=== PATIENT | female | born 1930 | race American Indian/Alaskan Native ===

== ENCOUNTER 2018-08-02 02:46 | Inpatient (IN) ==
[2018-08-02 03:14] LABS: Basophils # (auto) 0.04 K/uL (0-0.2); Basophils % (auto) 0.6 %; Eosinophils # (auto) 0.16 K/uL (0-0.5); Eosinophils % (auto) 2.4 %; Hematocrit (blood only) 37.9 % (37-47); Hemoglobin 12.3 g/dL (12.0-16.0); Immature Granulocytes # (auto) 0.01 K/uL (0.00-0.02); Immature Granulocytes % (auto) 0.2 %; Lymphocytes # (auto) 1.15 K/uL (1.2-3.4); Lymphocytes % (auto) 17.3 %; Mean Corpuscular Hgb Conc 32.5 g/dL (32-36); Mean Corpuscular Volume 89.4 fL (80-100); Mean Platelet Volume 10.9 fL (7.4-10.4); Monocytes # (auto) 0.48 K/uL (0.11-0.59); Monocytes % (auto) 7.2 %; Neutrophils # (auto) 4.81 K/uL (1.4-6.5); Neutrophils % (auto) 72.3 %; Platelet Count 241 K/uL (130-400); RDW Coefficient of Variation 14.9 % (11.5-14.5); RDW Standard Deviation 48.2 fL (36.4-46.3); Red Blood Count 4.24 M/uL (4.2-5.4); White Blood Count 6.65 K/uL (4.8-10.8)
[2018-08-02] MEDS ORDERED: LABETALOL HCL IV 5 MG/ML 20ML IV STA ×2 (03:17→14:06)
[2018-08-02 03:35] LABS: Alanine Aminotransferase 29 U/L (12-78); Albumin Level 3.9 gm/dl (3.4-5.0); Aspartate Aminotransferase 23 U/L (15-37); BUN Creatinine Ratio 18.5 (10-20); Blood Urea Nitrogen 21 mg/dl (7-18); Carbon Dioxide 29 mmol/L (21-32); Chloride 108 mmol/L (98-107); Est GFR (African American) 50.8; Est GFR (Non-African American) 43.8; Glucose 92 mg/dl (70-99); Magnesium 1.9 mg/dl (1.8-2.4); Potassium 3.7 mmol/L (3.5-5.1); Sodium 141 mmol/L (136-145)
[2018-08-02 03:38] LABS: Albumin Globulin Ratio 1.1 (0.9-2); Alkaline Phosphatase 100 U/L (45-117); Bilirubin,Total 0.7 mg/dl (0.2-1); Globulin 3.6 gm/dl (2.5-4.0); Total Protein 7.5 gm/dl (6.4-8.2)
[2018-08-02 03:48] LABS: Influenza A virus by PCR Neg for Influ A (Neg); Influenza B virus by PCR Neg for Influ B (Neg)
[2018-08-02 03:54] LABS: Appearance Urine Clear (Clear); Bacteria Urine Automated Negative (Negative); Bilirubin Urine Negative (Negative); Cast Urine Automated 0 /lpf (0-5); Color Urine Yellow; Epithelial Cell Urine Auto >30 /lpf (0-5); Glucose Urine UA Negative (Negative); Ketones Urine Negative (Negative); Leukocyte Esterase Urine Negative (Negative); Nitrite Urine Negative (Negative); Protein Urine 1+ (Negative); Specific Gravity Urine 1.014 (1.000-1.030); Urobilinogen Urine Negative (Negative)
[2018-08-02 04:16] LABS: Troponin I < 0.015 ng/ml (0-0.045)
[2018-08-02] MEDS ORDERED: LISINOPRIL 40 MG TAB PO STA (05:03)
[2018-08-02] MEDS ORDERED: AMLODIPINE BESYLATE 5 MG TAB PO ONE (05:03)
[2018-08-02] MEDS ORDERED: ATENOLOL 50 MG TABLET PO ONE (05:03)
[2018-08-02] MEDS ORDERED: MAGNESIUM SULFATE / D5W 1 GM/100 ML BAG IV ONE (06:08)
[2018-08-02] MEDS: POTASSIUM CHLORIDE 20 MEQ TABCR PO STA ×2 (06:26→06:36)
[2018-08-02 06:48] LABS: Partial Thromboplastin Time 25.3 Seconds (21.0-31.0)
--- NOTE | 2018-08-02 06:49 | History & Physical Report ---
Date of Service August 02, 2018 Assessment & Plan (1) SOB (shortness of breath): Over the last 6 months Possibly from A. fib secondary to hypertensive urgency secondary to medication noncompliance Rule out PE/DVT with leg swelling complaints Forgetfulness, possible beginning dementia PCU Facilitate home BP meds, increase Atenolol to twice daily dosing CT chest, LE Dopplers for PE/DVT workup TTE, Cardio consult RE new onset A. fib IV Heparin for thromboembolic prevention PT OT eval DVT prophylaxis. Heparin Full code Patient's [id number] requesting updates from providers. Ms. Aleah Moya, contact #[phone]. Present on Admission?: Yes History of Present Illness Chief Complaint: Shortness of breath Primary Care Provider: Cheryl Grider History obtained from patient, family, and records. Patient is a fair historian. Medical history significant for hypertension, mitral regurgitation as per records, osteoarthritis. Patient seen at PCPs office 3 months ago for multiple concerns. Medication noncompliance, memory issues, exertional SOB symptoms. Patient denies depression. SBP during encounter was 170s. Outpatient TTE showed EF of 55%. This morning, patient had worsening shortness of breath symptoms. No chest pain. Bilateral leg swelling. No cough symptoms. SBP at the ER 190-220s. Patient noted to be in A. fib. Patient given IV labetalol followed by oral Norvasc, atenolol, and lisinopril medications. 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 Allergies Allergy/AdvReac Type Severity Reaction Status Date / Time No Known Allergies Allergy Unverified 08/02/18 04:43 Home Medications Home Medications Medication Instructions Recorded Confirmed Type amlodipine 2.5 mg PO DAILY 08/02/18 08/02/18 History atenolol 50 mg PO DAILY 08/02/18 08/02/18 History lisinopril 40 mg PO DAILY 08/02/18 08/02/18 History meloxicam 7.5 mg PO DAILY 08/02/18 08/02/18 History Past Med/Surg History Medical History HTN (hypertension) Social History Current Living Situation: Family Other Information That Helps Us Care for You: No Feels Safe at Home: Yes Safety Concerns: Feels Safe At This Time Smoking Status: Never smoker Hx Alcohol Use: Yes Alcohol type: wine Alcohol Intake Frequency: a few times a week Hx Substance Use: No Beliefs That Will Affect Care: None Preferred Language: Mohawk Communication Ability: Effective Review of Systems As per HPI, all 10 systems reviewed, all other ROS negative Physical Exam 2 Vital Signs (Past 24 Hours): Last Vital Signs Temp 36.8 C 08/02/18 02:50 Pulse 61 08/02/18 06:31 Resp 28 H 08/02/18 06:31 BP 160/92 H 08/02/18 06:31 Pulse Ox 93 08/02/18 06:31 Physical Exam: GENERAL: Comfortable slightly anxious, oriented to year, no respiratory distress SKIN: Normal color, warm HEENT: [place] palpebral conjunctivae, no ptosis, moist buccal mucosa NECK : Supple, short neck, no tenderness CHEST : CTA, no tenderness HEART : Irregular, systolic murmur ABDOMEN: Some distention, nontender EXTREMITIES : Bilateral LE swelling, no LE tenderness, no other conspicuous deformities noted NEUROLOGIC : Oriented to year, no facial asymmetry, mild hearing impairment, gait and stance not assessed Results & Data Laboratory Results Laboratory Results WBC 6.65 K/uL (4.8-10.8) 08/02/18 02:54 RBC 4.24 M/uL (4.2-5.4) 08/02/18 02:54 Hgb 12.3 g/dL (12.0-16.0) 08/02/18 02:54 Hct 37.9 % (37-47) 08/02/18 02:54 MCV 89.4 fL (80-100) 08/02/18 02:54 MCH 29.0 pg (25-34) 08/02/18 02:54 MCHC 32.5 g/dL (32-36) 08/02/18 02:54 RDW Std Deviation 48.2 fL (36.4-46.3) H 08/02/18 02:54 RDW Coeff of Matthew 14.9 % (11.5-14.5) H 08/02/18 02:54 Plt Count 241 K/uL (130-400) 08/02/18 02:54 MPV 10.9 fL (7.4-10.4) H 08/02/18 02:54 Immature Gran % (Auto) 0.2 % 08/02/18 02:54 Neut % (Auto) 72.3 % 08/02/18 02:54 Lymph % (Auto) 17.3 % 08/02/18 02:54 [place] % (Auto) 7.2 % 08/02/18 02:54 Eos % (Auto) 2.4 % 08/02/18 02:54 Baso % (Auto) 0.6 % 08/02/18 02:54 Immature Gran # (Auto) 0.01 K/uL (0.00-0.02) 08/02/18 02:54 Neut # (Auto) 4.81 K/uL (1.4-6.5) 08/02/18 02:54 Lymph # (Auto) 1.15 K/uL (1.2-3.4) L 08/02/18 02:54 [place] # (Auto) 0.48 K/uL (0.11-0.59) 08/02/18 02:54 Eos # (Auto) 0.16 K/uL (0-0.5) 08/02/18 02:54 Baso # (Auto) 0.04 K/uL (0-0.2) 08/02/18 02:54 APTT 25.3 Seconds (21.0-31.0) 08/02/18 02:54 PTT Ratio 1.0 08/02/18 02:54 Sodium 141 mmol/L (136-145) 08/02/18 02:54 Potassium 3.7 mmol/L (3.5-5.1) 08/02/18 02:54 Chloride 108 mmol/L (98-107) H 08/02/18 02:54 Carbon Dioxide 29 mmol/L (21-32) 08/02/18 02:54 Anion Gap 4.0 (3-11) 08/02/18 02:54 BUN 21 mg/dl (7-18) H 08/02/18 02:54 Creatinine 1.12 mg/dl (0.6-1.2) 08/02/18 02:54 Est Cr Clr Drug Dosing 30.0 ml/min 08/02/18 02:54 Est GFR ( Amer) 50.8 08/02/18 02:54 Est GFR (Non-Af Amer) 43.8 08/02/18 02:54 BUN/Creatinine Ratio 18.5 (10-20) 08/02/18 02:54 Glucose 92 mg/dl (70-99) 08/02/18 02:54 Calcium 9.0 mg/dl (8.5-10.1) 08/02/18 02:54 Magnesium 1.9 mg/dl (1.8-2.4) 08/02/18 02:54 Total Bilirubin 0.7 mg/dl (0.2-1) 08/02/18 02:54 AST 23 U/L (15-37) 08/02/18 02:54 ALT 29 U/L (12-78) 08/02/18 02:54 Alkaline Phosphatase 100 U/L (45-117) 08/02/18 02:54 Troponin I < 0.015 ng/ml (0-0.045) 08/02/18 02:54 Total Protein 7.5 gm/dl (6.4-8.2) 08/02/18 02:54 Albumin 3.9 gm/dl (3.4-5.0) 08/02/18 02:54 Globulin 3.6 gm/dl (2.5-4.0) 08/02/18 02:54 Albumin/Globulin Ratio 1.1 (0.9-2) 08/02/18 02:54 TSH 1.790 uIu/ml (0.300-4.500) 08/02/18 02:54 Urine Color Yellow 08/02/18 03:30 Urine Appearance Clear (Clear) 08/02/18 03:30 Urine pH 7.0 (4.5-7.5) 08/02/18 03:30 Ur Specific [place] 1.014 (1.000-1.030) 08/02/18 03:30 Urine Protein 1+ (Negative) H 08/02/18 03:30 Urine Glucose (UA) Negative (Negative) 08/02/18 03:30 Urine Ketones Negative (Negative) 08/02/18 03:30 Urine Blood Negative (Negative) 08/02/18 03:30 Urine Nitrite Negative (Negative) 08/02/18 03:30 Urine Bilirubin Negative (Negative) 08/02/18 03:30 Urine Urobilinogen Negative (Negative) 08/02/18 03:30 Ur Leukocyte Esterase Negative (Negative) 08/02/18 03:30 Urine WBC (Auto) 1-5 /hpf (0-5) 08/02/18 03:30 Urine RBC (Auto) 0-4 /hpf (0-4) 08/02/18 03:30 U Hyaline Cast (Auto) 0 /lpf (0-5) 08/02/18 03:30 U Epithel Cells (Auto) >30 /lpf (0-5) H 08/02/18 03:30 Urine Bacteria (Auto) Negative (Negative) 08/02/18 03:30 Influenza Type A (PCR) Neg for Influ A (Neg) 08/02/18 03:01 Influenza Type B (PCR) Neg for Influ B (Neg) 08/02/18 03:01 Diagnostic Findings Chest x-ray per my interpretation cardiomegaly EKG as per my interpretation : Rate 70, A. fib, no ischemia, PRWP
[2018-08-02] MEDS ORDERED: Heparin IV Standard *NO* Bolus SCH (06:53)
--- NOTE | 2018-08-02 07:10 | XRay Report ---
SINGLE VIEW CHEST CLINICAL HISTORY: Dyspnea. FINDINGS: An AP, portable, upright chest radiograph is obtained. No prior studies are available for c omparison at the time of dictation. The examination is degraded by portable technique and patient rot ation. The heart is enlarged and there is atherosclerotic calcification of the thoracic aorta. The p ulmonary vasculature is noncongested. Nonspecific interstitial thickening is likely chronic. There is bibasilar atelectasis. No airspace consolidation or large pleural effusion is identified. No pneumot horax is seen. The skeletal structures are osteopenic. The bony thorax is grossly intact. Degenerativ e change and scoliosis are noted in the thoracic spine. IMPRESSION: Cardiomegaly with no acute cardiopulmonary abnormality. Electronically signed by: Oscar Lee M.D. 08/02/2018 7:09 AM
--- NOTE | 2018-08-02 07:57 | Emergency Department Note ---
Entered by Chago Candelario acting as a scribe for Zayra Nix MD History of Present Illness General Chief complaint: Shortness of Breath/Dyspnea Stated complaint: SHORTNESS OF BREATH Time Seen by Provider: 08/02/18 02:51 Source: patient and family Mode of arrival: EMS Limitations: no limitations History of Present Illness Onset (ago): unknown (Recent) Location: chest Pain Consistency: + intermittent Relieved By: + none Associated symptoms: + weakness and + other (Lightheadedness) The patient is an 87 year old female who presents to the ED via EMS with family due to complaints of intermittent SOB that began recently. Daughter states the patient has also been complaining of lightheadedness and increased weakness. Daughter states that the patient is supposed to take blood pressure medication but is not taking it as prescribed. Patient states she does not take them because she figures she doesnt need them. Patient denies having any SOB in the ER. Patient states she sees Dr. Grider at [facility]. Daughter states the patients next visit is in a month and that she is seen once a year. Patient denies difficulty urinating, vomiting, diarrhea, chest pain , fevers, coughs, smoking, and history of diabetes. Home Medications Home Medications Medication Instructions Recorded Confirmed Type amlodipine 2.5 mg PO DAILY 08/02/18 08/02/18 History atenolol 50 mg PO DAILY 08/02/18 08/02/18 History lisinopril 40 mg PO DAILY 08/02/18 08/02/18 History meloxicam 7.5 mg PO DAILY 08/02/18 08/02/18 History Allergies Allergy/AdvReac Type Severity Reaction Status Date / Time No Known Allergies Allergy Unverified 08/02/18 04:43 Past Med/Surg History Medical History HTN (hypertension) Social History Current Living Situation: Family Other Information That Helps Us Care for You: No Feels Safe at Home: Yes Safety Concerns: Feels Safe At This Time Smoking Status: Never smoker Hx Alcohol Use: Yes Alcohol type: wine Alcohol Intake Frequency: a few times a week Hx Substance Use: No Beliefs That Will Affect Care: None Preferred Language: Algerian Communication Ability: Effective Review of Systems See HPI for pertinent positives & negatives. and A total of 10 systems reviewed and were otherwise negative Physical Exam Vital Signs Vital Signs - 24 hr 08/03/18 19:45 08/03/18 23:06 08/04/18 00:20 Temperature 36.6 C 36.9 C Temperature Source Oral Oral Pulse Rate 70 Pulse Rate [Apical] Pulse Rate [Right Finger] 73 88 Respiratory Rate 20 18 Blood Pressure [Left Arm] 181/74 H Blood Pressure [Right Arm] 173/95 H Blood Pressure Mean [Left Arm] 109 Blood Pressure Mean [Right Arm] 121 Blood Pressure Position [Left Arm] Lying Blood Pressure Position [Right Arm] Sitting Pulse Oximetry 97 97 Oxygen Delivery Method Room Air 08/04/18 03:31 08/04/18 05:42 08/04/18 07:57 Temperature 36.8 C 36.4 C L Temperature Source Oral Oral Pulse Rate Pulse Rate [Apical] 76 Pulse Rate [Right Finger] 80 64 Respiratory Rate 18 20 Blood Pressure [Left Arm] 141/77 H 186/61 H Blood Pressure [Right Arm] 159/76 H 186/92 H Blood Pressure Mean [Left Arm] 98 102 Blood Pressure Mean [Right Arm] 103 123 Blood Pressure Position [Left Arm] Lying Lying Blood Pressure Position [Right Arm] Lying Lying Pulse Oximetry 95 94 Oxygen Delivery Method Room Air Room Air 08/04/18 10:29 08/04/18 14:24 Temperature 36.7 C 36.6 C Temperature Source Oral Oral Pulse Rate Pulse Rate [Apical] Pulse Rate [Right Finger] 55 L 97 H Respiratory Rate 20 20 Blood Pressure [Left Arm] 152/79 H 124/63 Blood Pressure [Right Arm] Blood Pressure Mean [Left Arm] 103 83 Blood Pressure Mean [Right Arm] Blood Pressure Position [Left Arm] Lying Sitting Blood Pressure Position [Right Arm] Pulse Oximetry 96 99 Oxygen Delivery Method Room Air Room Air Vital signs reviewed. Noted to be markedly hypertensive. General: Somewhat cathectic-appearing elderly thin female, in no significant distress. HEENT: No scleral icterus, PERRLA, neck supple. Atraumatic. Cardiovascular: Regular rate and rhythm, no extra sounds. Pulmonary: Clear to auscultation bilaterally, normal work of breathing. Abdomen: Soft, nontender, nondistended, positive bowel sounds. Musculoskeletal: Atraumatic, minimal non-pitting edema to bilateral lower extremities. Neurologic: Patient awake alert and oriented x 3 Skin: Warm, dry, no rash Course 0254: Past medical records reviewed. The patient was evaluated in room B9, and a complete history and physical examination were performed. 0503: I reevaluated the patient and updated her and her family on her findings and treatment plan. 0607: Upon reevaluation, the patient will be further evaluated. I updated the patient and her family on the patient's findings and treatment plan. They are agreeable to the treatment plan. Patient will be assessed for further evaluation. Consultations Consultation #1: I reviewed the patient's case with Dr. Astudillo of [facility]. He will evaluate the patient for further management. Time: 06:01 Administered Medications Acetaminophen (Tylenol) 650 mg PO Q4H PRN PRN Reason: Pain or Fever Stop: 09/01/18 08:17 Last Admin: 08/04/18 03:05 Dose: 650 mg Admin: 08/03/18 16:22 Dose: 650 mg Amlodipine Besylate (Norvasc) 5 mg PO BID ANA Stop: 09/02/18 20:59 Last Admin: 08/04/18 08:41 Dose: 5 mg Admin: 08/03/18 20:09 Dose: 5 mg Atenolol (Tenormin) 50 mg PO BID ANA Stop: 09/01/18 20:59 Last Admin: 08/04/18 08:42 Dose: 50 mg Admin: 08/03/18 20:09 Dose: 50 mg Admin: 08/03/18 08:05 Dose: 50 mg Admin: 08/02/18 21:11 Dose: 50 mg Hydralazine HCl (Hydralazine Hcl) 10 mg IV Q6H PRN PRN Reason: SBP>180 Stop: 09/01/18 18:44 Last Admin: 08/04/18 08:40 Dose: 10 mg Admin: 08/03/18 08:03 Dose: 10 mg Admin: 08/02/18 19:17 Dose: 10 mg Hydralazine HCl (Apresoline) 25 mg PO Q8 ANA Stop: 09/03/18 13:59 Last Admin: 08/04/18 13:19 Dose: 25 mg Hydrochlorothiazide (Hctz) 12.5 mg PO QAM ANA Stop: 09/03/18 08:59 Last Admin: 08/04/18 08:41 Dose: 12.5 mg Prochlorperazine 5 mg/ Syringe 5 mls @ 5 mls/min IV Q6H PRN PRN Reason: Nausea And Vomiting Stop: 09/01/18 08:17 Last Admin: 08/02/18 09:47 Dose: 5 mls/min Heparin Sodium/Dextrose (Heparin Sodium/Dextrose) 25,000 units in 500 mls @ 18 mls/hr IV .Q24H ANA; Protocol Stop: 09/01/18 09:03 Last Admin: 08/04/18 16:16 Dose: 900 units/hr, 18 mls/hr Titration: 08/04/18 07:03 Dose: Titration: 08/04/18 06:16 Dose: 900 units/hr, 18 mls/hr Titration: 08/03/18 19:12 Dose: Admin: 08/03/18 12:18 Dose: 900 units/hr, 18 mls/hr Titration: 08/03/18 12:18 Dose: 900 units/hr, 18 mls/hr Admin: 08/03/18 09:02 Dose: 900 units/hr, 18 mls/hr Titration: 08/03/18 07:04 Dose: Titration: 08/03/18 01:54 Dose: 950 units/hr, 19 mls/hr Titration: 08/03/18 01:27 Dose: 1,050 units/hr, 21 mls/hr Titration: 08/03/18 00:04 Dose: 0 units/hr, 0 mls/hr Titration: 08/02/18 19:18 Dose: 1,100 units/hr, 22 mls/hr Titration: 08/02/18 16:22 Dose: 22 units/hr, 0.4 mls/hr Admin: 08/02/18 09:29 Dose: 20 units/hr, 0.4 mls/hr Ioversol (Optiray 320 125ml) 116 ml IV ONCE PRN PRN Reason: Interaction Checking Stop: 08/06/18 11:00 Last Admin: 08/02/18 11:02 Dose: 116 ml Lisinopril (Zestril) 40 mg PO QAM [facility] Stop: 09/02/18 08:59 Last Admin: 08/04/18 08:41 Dose: 40 mg Admin: 08/03/18 08:04 Dose: 40 mg Nitroglycerin (Nitro-Bid 2%) 1 inch EXT Q6H ANA Stop: 09/01/18 17:59 Last Admin: 08/04/18 13:18 Dose: 1 inch Admin: 08/04/18 05:41 Dose: 1 inch Admin: 08/03/18 23:39 Dose: 1 inch Admin: 08/03/18 19:16 Dose: 1 inch Admin: 08/03/18 13:07 Dose: 1 inch Admin: 08/03/18 05:57 Dose: 1 inch Admin: 08/03/18 00:36 Dose: 1 inch Admin: 08/02/18 18:18 Dose: 1 inch Tramadol HCl (Ultram) 25 mg PO Q4H PRN PRN Reason: Pain Stop: 09/01/18 08:17 Last Admin: 08/04/18 03:04 Dose: 25 mg Discontinued Medications Amlodipine Besylate (Norvasc) 2.5 mg PO NOW ONE Stop: 08/02/18 05:04 Last Admin: 08/02/18 05:13 Dose: 2.5 mg Amlodipine Besylate (Norvasc) 2.5 mg PO DAILY ANA Stop: 09/02/18 08:59 Last Admin: 08/03/18 08:05 Dose: 2.5 mg Atenolol (Tenormin) 50 mg PO NOW ONE Stop: 08/02/18 05:04 Last Admin: 08/02/18 05:13 Dose: 50 mg Hydralazine HCl (Hydralazine Hcl) 10 mg IV NOW STA Stop: 08/02/18 08:25 Last Admin: 08/02/18 08:46 Dose: 10 mg Hydralazine HCl (Apresoline) 10 mg PO BID ANA Stop: 09/02/18 20:59 Last Admin: 08/04/18 08:41 Dose: 10 mg Admin: 08/03/18 20:08 Dose: 10 mg Hydralazine HCl (Apresoline) 15 mg PO NOW STA Stop: 08/04/18 10:00 Last Admin: 08/04/18 10:48 Dose: 15 mg Magnesium Sulfate/Dextrose (Magnesium Sulfate / D5w) 1 gm in 100 mls @ 100 mls/ hr IV ONE ONE Stop: 08/02/18 07:07 Last Infusion: 08/02/18 07:37 Dose: 0 mls/hr Admin: 08/02/18 06:26 Dose: 100 mls/hr Lactated Ringer's (Lr) 1,000 mls @ 50 mls/hr IV .Q20H ONE Stop: 08/03/18 04:17 Last Infusion: 08/03/18 00:30 Dose: Infusion: 08/03/18 00:09 Dose: 0 mls/hr Admin: 08/02/18 08:46 Dose: 50 mls/hr Potassium Chloride (K Hai / Wtr) 10 meq in 100 mls @ 100 mls/hr IV Q1H ANA Stop: 08/02/18 11:59 Last Infusion: 08/02/18 17:30 Dose: 0 mls/hr Admin: 08/02/18 14:54 Dose: 50 mls/hr Infusion: 08/02/18 14:45 Dose: 50 mls/hr Admin: 08/02/18 12:45 Dose: 50 mls/hr Infusion: 08/02/18 12:45 Dose: 50 mls/hr Infusion: 08/02/18 11:35 Dose: 50 mls/hr Admin: 08/02/18 11:13 Dose: 100 mls/hr Furosemide 40 mg/ Syringe 4 mls @ 4 mls/min IV ONE STA Stop: 08/02/18 14:46 Last Admin: 08/02/18 15:21 Dose: 4 mls/min Heparin Sodium (Porcine) 2,000 (units/ Syringe) 2 mls @ 1 mls/min IV ONE ONE Stop: 08/02/18 16:27 Last Admin: 08/02/18 17:25 Dose: 1 mls/min Labetalol HCl (Normodyne) 10 mg IV NOW STA Stop: 08/02/18 03:18 Last Admin: 08/02/18 03:41 Dose: 10 mg Labetalol HCl (Normodyne) 10 mg IV NOW STA Stop: 08/02/18 14:07 Last Admin: 08/02/18 14:58 Dose: 10 mg Lisinopril (Zestril) 40 mg PO NOW STA Stop: 08/02/18 05:04 Last Admin: 08/02/18 05:13 Dose: 40 mg Potassium Chloride (Klor-Con M20) 40 meq PO NOW STA Stop: 08/02/18 06:09 Last Admin: 08/02/18 06:36 Dose: Not Given Potassium Chloride (Klor-Con M10) 40 meq PO NOW STA Stop: 08/03/18 18:16 Last Admin: 08/03/18 19:16 Dose: 40 meq Medical Decision Making Differential Diagnosis Differential diagnosis: Etiologies such as infections, reactive airway disease, COPD, pneumonia, pleural effusion, pulmonary edema, ARDS, pneumothorax, CHF, cardiac ischemia, cardiac tamponade, dysrhythmia, anemia, pulmonary embolism, musculoskeletal, gastrointestinal process, as well as others were entertained. Medical Records Attestation: I reviewed the patient's medical records. Home Medications Current Medication List: was personally reviewed by me Laboratory Data Attestation: I reviewed the patient's lab results. Result diagrams: 08/04/18 05:21 08/04/18 05:21 Lab Results 08/02/18 08/02/18 08/02/18 Range/Units 02:54 02:54 02:54 WBC 6.65 (4.8-10.8) K/uL RBC 4.24 (4.2-5.4) M/uL Hgb 12.3 (12.0-16.0) g/dL Hct 37.9 (37-47) % MCV 89.4 (80-100) fL MCH 29.0 (25-34) pg MCHC 32.5 (32-36) g/dL RDW Std Deviation 48.2 H (36.4-46.3) fL RDW Coeff of Matthew 14.9 H (11.5-14.5) % Plt Count 241 (130-400) K/uL MPV 10.9 H (7.4-10.4) fL Immature Gran % (Auto) 0.2 % Neut % (Auto) 72.3 % Lymph % (Auto) 17.3 % Gates % (Auto) 7.2 % Eos % (Auto) 2.4 % Baso % (Auto) 0.6 % Immature Gran # (Auto) 0.01 (0.00-0.02) K/uL Neut # (Auto) 4.81 (1.4-6.5) K/uL Lymph # (Auto) 1.15 L (1.2-3.4) K/uL Gates # (Auto) 0.48 (0.11-0.59) K/uL Eos # (Auto) 0.16 (0-0.5) K/uL Baso # (Auto) 0.04 (0-0.2) K/uL PT (9.0-12.0) Seconds INR (0.9-1.1) APTT (21.0-31.0) Seconds PTT Ratio Sodium 141 (136-145) mmol/L Potassium 3.7 (3.5-5.1) mmol/L Chloride 108 H (98-107) mmol/L Carbon Dioxide 29 (21-32) mmol/L Anion Gap 4.0 (3-11) BUN 21 H (7-18) mg/dl Creatinine 1.12 (0.6-1.2) mg/dl Est Cr Clr Drug Dosing 30.0 ml/min Est GFR ( Amer) 50.8 Est GFR (Non-Af Amer) 43.8 BUN/Creatinine Ratio 18.5 (10-20) Glucose 92 (70-99) mg/dl POC Glucose (70-99) Calcium 9.0 (8.5-10.1) mg/dl Magnesium 1.9 (1.8-2.4) mg/dl Total Bilirubin 0.7 (0.2-1) mg/dl AST 23 (15-37) U/L ALT 29 (12-78) U/L Alkaline Phosphatase 100 (45-117) U/L Troponin I < 0.015 (0-0.045) ng/ml Total Protein 7.5 (6.4-8.2) gm/dl Albumin 3.9 (3.4-5.0) gm/dl Globulin 3.6 (2.5-4.0) gm/dl Albumin/Globulin Ratio 1.1 (0.9-2) TSH 1.790 (0.300-4.500) uIu/ml Urine Color Urine Appearance (Clear) Urine pH (4.5-7.5) Ur Specific Dodson (1.000-1.030) Urine Protein (Negative) Urine Glucose (UA) (Negative) Urine Ketones (Negative) Urine Blood (Negative) Urine Nitrite (Negative) Urine Bilirubin (Negative) Urine Urobilinogen (Negative) Ur Leukocyte Esterase (Negative) Urine WBC (Auto) (0-5) /hpf Urine RBC (Auto) (0-4) /hpf U Hyaline Cast (Auto) (0-5) /lpf U Epithel Cells (Auto) (0-5) /lpf Urine Bacteria (Auto) (Negative) Influenza Type A (PCR) (Neg) Influenza Type B (PCR) (Neg) 08/02/18 08/02/18 08/02/18 Range/Units 02:54 03:01 03:30 WBC (4.8-10.8) K/uL RBC (4.2-5.4) M/uL Hgb (12.0-16.0) g/dL Hct (37-47) % MCV (80-100) fL MCH (25-34) pg MCHC (32-36) g/dL RDW Std Deviation (36.4-46.3) fL RDW Coeff of Matthew (11.5-14.5) % Plt Count (130-400) K/uL MPV (7.4-10.4) fL Immature Gran % (Auto) % Neut % (Auto) % Lymph % (Auto) % Gates % (Auto) % Eos % (Auto) % Baso % (Auto) % Immature Gran # (Auto) (0.00-0.02) K/uL Neut # (Auto) (1.4-6.5) K/uL Lymph # (Auto) (1.2-3.4) K/uL Gates # (Auto) (0.11-0.59) K/uL Eos # (Auto) (0-0.5) K/uL Baso # (Auto) (0-0.2) K/uL PT (9.0-12.0) Seconds INR (0.9-1.1) APTT 25.3 (21.0-31.0) Seconds PTT Ratio 1.0 Sodium (136-145) mmol/L Potassium (3.5-5.1) mmol/L Chloride (98-107) mmol/L Carbon Dioxide (21-32) mmol/L Anion Gap (3-11) BUN (7-18) mg/dl Creatinine (0.6-1.2) mg/dl Est Cr Clr Drug Dosing ml/min Est GFR ( Amer) Est GFR (Non-Af Amer) BUN/Creatinine Ratio (10-20) Glucose (70-99) mg/dl POC Glucose (70-99) Calcium (8.5-10.1) mg/dl Magnesium (1.8-2.4) mg/dl Total Bilirubin (0.2-1) mg/dl AST (15-37) U/L ALT (12-78) U/L Alkaline Phosphatase (45-117) U/L Troponin I (0-0.045) ng/ml Total Protein (6.4-8.2) gm/dl Albumin (3.4-5.0) gm/dl Globulin (2.5-4.0) gm/dl Albumin/Globulin Ratio (0.9-2) TSH (0.300-4.500) uIu/ml Urine Color Yellow Urine Appearance Clear (Clear) Urine pH 7.0 (4.5-7.5) Ur Specific Dodson 1.014 (1.000-1.030) Urine Protein 1+ H (Negative) Urine Glucose (UA) Negative (Negative) Urine Ketones Negative (Negative) Urine Blood Negative (Negative) Urine Nitrite Negative (Negative) Urine Bilirubin Negative (Negative) Urine Urobilinogen Negative (Negative) Ur Leukocyte Esterase Negative (Negative) Urine WBC (Auto) 1-5 (0-5) /hpf Urine RBC (Auto) 0-4 (0-4) /hpf U Hyaline Cast (Auto) 0 (0-5) /lpf U Epithel Cells (Auto) >30 H (0-5) /lpf Urine Bacteria (Auto) Negative (Negative) Influenza Type A (PCR) Neg for Influ A (Neg) Influenza Type B (PCR) Neg for Influ B (Neg) 08/02/18 08/02/18 08/02/18 Range/Units 15:17 15:17 22:56 WBC (4.8-10.8) K/uL RBC (4.2-5.4) M/uL Hgb (12.0-16.0) g/dL Hct (37-47) % MCV (80-100) fL MCH (25-34) pg MCHC (32-36) g/dL RDW Std Deviation (36.4-46.3) fL RDW Coeff of Matthew (11.5-14.5) % Plt Count (130-400) K/uL MPV (7.4-10.4) fL Immature Gran % (Auto) % Neut % (Auto) % Lymph % (Auto) % Gates % (Auto) % Eos % (Auto) % Baso % (Auto) % Immature Gran # (Auto) (0.00-0.02) K/uL Neut # (Auto) (1.4-6.5) K/uL Lymph # (Auto) (1.2-3.4) K/uL Gates # (Auto) (0.11-0.59) K/uL Eos # (Auto) (0-0.5) K/uL Baso # (Auto) (0-0.2) K/uL PT 11.4 (9.0-12.0) Seconds INR 1.1 (0.9-1.1) APTT 42.9 H 141.7 H* (21.0-31.0) Seconds PTT Ratio 1.7 5.4 Sodium (136-145) mmol/L Potassium (3.5-5.1) mmol/L Chloride (98-107) mmol/L Carbon Dioxide (21-32) mmol/L Anion Gap (3-11) BUN (7-18) mg/dl Creatinine (0.6-1.2) mg/dl Est Cr Clr Drug Dosing ml/min Est GFR ( Amer) Est GFR (Non-Af Amer) BUN/Creatinine Ratio (10-20) Glucose (70-99) mg/dl POC Glucose (70-99) Calcium (8.5-10.1) mg/dl Magnesium (1.8-2.4) mg/dl Total Bilirubin (0.2-1) mg/dl AST (15-37) U/L ALT (12-78) U/L Alkaline Phosphatase (45-117) U/L Troponin I (0-0.045) ng/ml Total Protein (6.4-8.2) gm/dl Albumin (3.4-5.0) gm/dl Globulin (2.5-4.0) gm/dl Albumin/Globulin Ratio (0.9-2) TSH (0.300-4.500) uIu/ml Urine Color Urine Appearance (Clear) Urine pH (4.5-7.5) Ur Specific Dodson (1.000-1.030) Urine Protein (Negative) Urine Glucose (UA) (Negative) Urine Ketones (Negative) Urine Blood (Negative) Urine Nitrite (Negative) Urine Bilirubin (Negative) Urine Urobilinogen (Negative) Ur Leukocyte Esterase (Negative) Urine WBC (Auto) (0-5) /hpf Urine RBC (Auto) (0-4) /hpf U Hyaline Cast (Auto) (0-5) /lpf U Epithel Cells (Auto) (0-5) /lpf Urine Bacteria (Auto) (Negative) Influenza Type A (PCR) (Neg) Influenza Type B (PCR) (Neg) 08/03/18 08/03/18 08/03/18 Range/Units 00:46 07:16 07:16 WBC 8.16 (4.8-10.8) K/uL RBC 4.12 L (4.2-5.4) M/uL Hgb 11.9 L (12.0-16.0) g/dL Hct 35.8 L (37-47) % MCV 86.9 (80-100) fL MCH 28.9 (25-34) pg MCHC 33.2 (32-36) g/dL RDW Std Deviation 46.7 H (36.4-46.3) fL RDW Coeff of Matthew 14.9 H (11.5-14.5) % Plt Count 264 (130-400) K/uL MPV 10.7 H (7.4-10.4) fL Immature Gran % (Auto) 0.1 % Neut % (Auto) 71.6 % Lymph % (Auto) 18.8 % Gates % (Auto) 8.2 % Eos % (Auto) 0.7 % Baso % (Auto) 0.6 % Immature Gran # (Auto) 0.01 (0.00-0.02) K/uL Neut # (Auto) 5.84 (1.4-6.5) K/uL Lymph # (Auto) 1.53 (1.2-3.4) K/uL Gates # (Auto) 0.67 H (0.11-0.59) K/uL Eos # (Auto) 0.06 (0-0.5) K/uL Baso # (Auto) 0.05 (0-0.2) K/uL PT (9.0-12.0) Seconds INR (0.9-1.1) APTT 86.7 H* 75.3 H* (21.0-31.0) Seconds PTT Ratio 3.3 2.9 Sodium (136-145) mmol/L Potassium (3.5-5.1) mmol/L Chloride (98-107) mmol/L Carbon Dioxide (21-32) mmol/L Anion Gap (3-11) BUN (7-18) mg/dl Creatinine (0.6-1.2) mg/dl Est Cr Clr Drug Dosing ml/min Est GFR ( Amer) Est GFR (Non-Af Amer) BUN/Creatinine Ratio (10-20) Glucose (70-99) mg/dl POC Glucose (70-99) Calcium (8.5-10.1) mg/dl Magnesium (1.8-2.4) mg/dl Total Bilirubin (0.2-1) mg/dl AST (15-37) U/L ALT (12-78) U/L Alkaline Phosphatase (45-117) U/L Troponin I (0-0.045) ng/ml Total Protein (6.4-8.2) gm/dl Albumin (3.4-5.0) gm/dl Globulin (2.5-4.0) gm/dl Albumin/Globulin Ratio (0.9-2) TSH (0.300-4.500) uIu/ml Urine Color Urine Appearance (Clear) Urine pH (4.5-7.5) Ur Specific Dodson (1.000-1.030) Urine Protein (Negative) Urine Glucose (UA) (Negative) Urine Ketones (Negative) Urine Blood (Negative) Urine Nitrite (Negative) Urine Bilirubin (Negative) Urine Urobilinogen (Negative) Ur Leukocyte Esterase (Negative) Urine WBC (Auto) (0-5) /hpf Urine RBC (Auto) (0-4) /hpf U Hyaline Cast (Auto) (0-5) /lpf U Epithel Cells (Auto) (0-5) /lpf Urine Bacteria (Auto) (Negative) Influenza Type A (PCR) (Neg) Influenza Type B (PCR) (Neg) 08/03/18 08/03/18 08/03/18 Range/Units 07:16 11:22 14:51 WBC (4.8-10.8) K/uL RBC (4.2-5.4) M/uL Hgb (12.0-16.0) g/dL Hct (37-47) % MCV (80-100) fL MCH (25-34) pg MCHC (32-36) g/dL RDW Std Deviation (36.4-46.3) fL RDW Coeff of Matthew (11.5-14.5) % Plt Count (130-400) K/uL MPV (7.4-10.4) fL Immature Gran % (Auto) % Neut % (Auto) % Lymph % (Auto) % Gates % (Auto) % Eos % (Auto) % Baso % (Auto) % Immature Gran # (Auto) (0.00-0.02) K/uL Neut # (Auto) (1.4-6.5) K/uL Lymph # (Auto) (1.2-3.4) K/uL Gates # (Auto) (0.11-0.59) K/uL Eos # (Auto) (0-0.5) K/uL Baso # (Auto) (0-0.2) K/uL PT (9.0-12.0) Seconds INR (0.9-1.1) APTT 61.2 H* (21.0-31.0) Seconds PTT Ratio 2.4 Sodium 138 (136-145) mmol/L Potassium 3.4 L (3.5-5.1) mmol/L Chloride 103 (98-107) mmol/L Carbon Dioxide 25 (21-32) mmol/L Anion Gap 10.0 (3-11) BUN 20 H (7-18) mg/dl Creatinine 1.14 (0.6-1.2) mg/dl Est Cr Clr Drug Dosing 28.5 ml/min Est GFR ( Amer) 49.7 Est GFR (Non-Af Amer) 42.9 BUN/Creatinine Ratio 17.9 (10-20) Glucose 108 H (70-99) mg/dl POC Glucose 119 H (70-99) Calcium 8.9 (8.5-10.1) mg/dl Magnesium 2.1 (1.8-2.4) mg/dl Total Bilirubin (0.2-1) mg/dl AST (15-37) U/L ALT (12-78) U/L Alkaline Phosphatase (45-117) U/L Troponin I (0-0.045) ng/ml Total Protein (6.4-8.2) gm/dl Albumin (3.4-5.0) gm/dl Globulin (2.5-4.0) gm/dl Albumin/Globulin Ratio (0.9-2) TSH (0.300-4.500) uIu/ml Urine Color Urine Appearance (Clear) Urine pH (4.5-7.5) Ur Specific Dodson (1.000-1.030) Urine Protein (Negative) Urine Glucose (UA) (Negative) Urine Ketones (Negative) Urine Blood (Negative) Urine Nitrite (Negative) Urine Bilirubin (Negative) Urine Urobilinogen (Negative) Ur Leukocyte Esterase (Negative) Urine WBC (Auto) (0-5) /hpf Urine RBC (Auto) (0-4) /hpf U Hyaline Cast (Auto) (0-5) /lpf U Epithel Cells (Auto) (0-5) /lpf Urine Bacteria (Auto) (Negative) Influenza Type A (PCR) (Neg) Influenza Type B (PCR) (Neg) 08/04/18 08/04/18 08/04/18 Range/Units 05:21 05:21 05:21 WBC 6.89 (4.8-10.8) K/uL RBC 4.01 L (4.2-5.4) M/uL Hgb 11.4 L (12.0-16.0) g/dL Hct 34.8 L (37-47) % MCV 86.8 (80-100) fL MCH 28.4 (25-34) pg MCHC 32.8 (32-36) g/dL RDW Std Deviation 47.0 H (36.4-46.3) fL RDW Coeff of Matthew 14.9 H (11.5-14.5) % Plt Count 232 (130-400) K/uL MPV 9.9 (7.4-10.4) fL Immature Gran % (Auto) % Neut % (Auto) % Lymph % (Auto) % Gates % (Auto) % Eos % (Auto) % Baso % (Auto) % Immature Gran # (Auto) (0.00-0.02) K/uL Neut # (Auto) (1.4-6.5) K/uL Lymph # (Auto) (1.2-3.4) K/uL Gates # (Auto) (0.11-0.59) K/uL Eos # (Auto) (0-0.5) K/uL Baso # (Auto) (0-0.2) K/uL PT (9.0-12.0) Seconds INR (0.9-1.1) APTT 63.6 H* (21.0-31.0) Seconds PTT Ratio 2.4 Sodium 139 (136-145) mmol/L Potassium 3.7 (3.5-5.1) mmol/L Chloride 107 (98-107) mmol/L Carbon Dioxide 26 (21-32) mmol/L Anion Gap 6.0 (3-11) BUN 23 H (7-18) mg/dl Creatinine 1.07 (0.6-1.2) mg/dl Est Cr Clr Drug Dosing 30.2 ml/min Est GFR ( Amer) 53.7 Est GFR (Non-Af Amer) 46.3 BUN/Creatinine Ratio 21.6 H (10-20) Glucose 101 H (70-99) mg/dl POC Glucose (70-99) Calcium 8.5 (8.5-10.1) mg/dl Magnesium 2.2 (1.8-2.4) mg/dl Total Bilirubin (0.2-1) mg/dl AST (15-37) U/L ALT (12-78) U/L Alkaline Phosphatase (45-117) U/L Troponin I (0-0.045) ng/ml Total Protein (6.4-8.2) gm/dl Albumin (3.4-5.0) gm/dl Globulin (2.5-4.0) gm/dl Albumin/Globulin Ratio (0.9-2) TSH (0.300-4.500) uIu/ml Urine Color Urine Appearance (Clear) Urine pH (4.5-7.5) Ur Specific Dodson (1.000-1.030) Urine Protein (Negative) Urine Glucose (UA) (Negative) Urine Ketones (Negative) Urine Blood (Negative) Urine Nitrite (Negative) Urine Bilirubin (Negative) Urine Urobilinogen (Negative) Ur Leukocyte Esterase (Negative) Urine WBC (Auto) (0-5) /hpf Urine RBC (Auto) (0-4) /hpf U Hyaline Cast (Auto) (0-5) /lpf U Epithel Cells (Auto) (0-5) /lpf Urine Bacteria (Auto) (Negative) Influenza Type A (PCR) (Neg) Influenza Type B (PCR) (Neg) Imaging Data Attestation: I personally reviewed and interpreted this imaging study as follows : My Impression: CHEST X-RAY X-ray shows cardiomegaly, some sort of hyperdensity in left hemithorax that that appears to be artifactual, no focal lung consolidation, chronic appearing interstitial change questionable fibrosis, no evidence of failure. ECG Data Attestation: I personally reviewed and interpreted this ECG as follows: Indication: SOB/dyspnea Rate (beats per minute): 69 Rhythm: atrial fibrillation Findings: + other (Nonspecific t-wave abnormality and QTc = 462); no acute ischemic change Blood Pressure Blood Pressure Findings: Elevated blood pressure Blood Pressure Disposition: further management by hospitalist MDM Narrative This pt was evaluated and appeared to be in no distress. IV access was obtained and lab work was drawn. Pt was placed on the radiation monitor and found to be in a rate controlled atrial fibrillation. This appears to be new after review of records. Lab work is fairly reassuring. Pt was given IV labetolol without much improvement. Pt was then given her prescribed po meds, with which she does not take. Pt seemed to improve. CXR to my interpretation is negative for acute infiltrate, no significant CHF. Pt was reevaluated and will be evaluated by the hospitalist service for further care. She agrees with the plan. Impression & Plan Hypertensive urgency, New onset atrial fibrillation Discharge Plan Visit Data *Final* Discharge Date/Time: 08/02/18 07:38 Chief Complaint: Shortness of Breath/Dyspnea Stated Complaint: SHORTNESS OF BREATH ED Provider: Zayra Nix Discharge Problem: Hypertensive urgency, New onset atrial fibrillation Patient Disposition: Admitted As Inpatient Discharge Instructions Interventions: ED Discharge Assessment Last Done: 08/02/18 07:38 The scribe's documentation has been prepared under my direction and personally reviewed by me in its entirety. I confirm that the note above accurately reflects all work, treatment, procedures, and medical decision making performed by me.
[2018-08-02] MEDS ORDERED: TRAMADOL HCL 50 MG TABLET PO PRN (08:18)
[2018-08-02] MEDS ORDERED: LACTATED RINGER'S 1,000 ML IV ONE (08:18)
[2018-08-02] MEDS ORDERED: NITROGLYCERIN SL 0.4 MG/TAB TAB SL PRN (08:18)
[2018-08-02] MEDS ORDERED: PROCHLORPERAZINE 5 MG in SYRINGE 4 ML IV PRN (08:18)
[2018-08-02] MEDS ORDERED: HydrALAZINE HCL 20 MG/ML VIAL IV STA (08:24)
[2018-08-02] MEDS ORDERED: Heparin IV Standard *NO* Bolus ONE (08:41)
[2018-08-02] MEDS: HEPARIN SODIUM/DEXTROSE 25,000 UNITS/500 ML BAG IV SCH (09:29)
--- NOTE | 2018-08-02 10:55 | Ultrasound Report ---
US venous doppler LE BI CLINICAL HISTORY: 87 years-old Female presenting with le swelling. TECHNIQUE: Real-time grayscale and color and spectral Doppler ultrasound imaging of the veins of the bilateral lower extremities was performed. Compression and augmentation were also utilized. COMPARISON: None. FINDINGS: RIGHT: Common femoral vein: Patent. Greater saphenous vein (superficial): Patent. Deep femoral vein: Patent. Femoral vein: Patent. Popliteal vein: Patent. Calf veins: Patent. LEFT: Common femoral vein: Patent. Greater saphenous vein (superficial): Patent. Deep femoral vein: Patent. Femoral vein: Patent. Popliteal vein: Patent. Calf veins: Patent. Other: None. IMPRESSION: No evidence of deep venous thrombosis. Electronically signed by: Kyrie Pinon M.D. 08/02/2018 10:54 AM
[2018-08-02] MEDS ORDERED: OPTIRAY 320 125ml IV PRN (11:01)
[2018-08-02] MEDS: POTASSIUM CHLORIDE / WTR 10 MEQ/100 ML PLCT IV SCH ×3 (11:13→14:54)
--- NOTE | 2018-08-02 11:15 | CT Scan Report ---
CT ANGIOGRAPHY OF THE CHEST, PULMONARY EMBOLUS PROTOCOL CLINICAL HISTORY: Shortness of breath. COMPARISON STUDY: Chest radiograph August 02, 2018. TECHNIQUE: Following IV administration of 116 mL of Optiray-320, helical axial images of the chest we re obtained utilizing the pulmonary embolus protocol. Maximal intensity projections and sagittal and coronal reformats were viewed on an independent 3D workstation. IV contrast was administered withou t complication. Automated exposure control was utilized for the study. A dose lowering technique wa s utilized adhering to the principles of ALARA. CT DOSE: 186.88 mGy.cm FINDINGS: No pulmonary emboli are identified. The heart is moderately enlarged with preferential dil atation of the right heart chambers. There is reflux of contrast into the IVC and hepatic veins. No p ericardial effusion is present. Small to moderate right and trace left pleural effusions are noted. L ungs are suboptimally assessed given respiratory motion. There is suspected mild interlobular septal thickening. Right lower lobe opacity favors atelectasis. There is no consolidation to suggest pneumon ia. A few prominent mediastinal lymph nodes are noted. There is trace upper abdominal ascites. No elizabeth picious osseous lesions within the bony thorax are noted. IMPRESSION: 1. No pulmonary emboli identified. 2. Findings suggestive of mild interstitial pulmonary edema. 3. Moderate cardiomegaly with preferential dilatation of the right heart chambers and reflux of contr ast into the IVC and hepatic veins. Findings suggest right heart dysfunction. 4. Small to moderate right and trace left pleural effusions. Small amount of upper abdominal ascites. Electronically signed by: Hansel Garcias M.D. 08/02/2018 11:14 AM
[2018-08-02] MEDS ORDERED: FUROSEMIDE 40 MG in SYRINGE 0 ML IV STA (14:45)
--- NOTE | 2018-08-02 14:47 | Hospitalist Progress Note ---
Date of Service August 02, 2018 Assessment & Plan (1) Hypertensive urgency: Requiring parenteral several doses of labetalol and hydralazine today. Lasix 40 IV was also given. Pt is asymptomatic including no headache, chest pain, SOB, visual changes. She has a h/o HTN with noncompliance with medication and she is clearly affected by some degree of dementia. CT revealed some evidence of pulmonary edema, however, she is clear to auscultation on exam , in no respiratory distress and is euvolemic. Home meds were restarted on admission including Amlodipine, atenolol, lisinopril. Continue with parenteral agents as needed until these have time to take effect. (2) New onset atrial fibrillation: Rate is controlled on admission. She is asymptomatic. Placed on heparin drip empirically. Discussed case with Cardiology who feels this patient is not a good candidate for anticoagulation. I agree considering her dementia and noncompliance history. Cont to monitor and appreciate recs per Cardiology. (3) Dementia: (4) CKD (chronic kidney disease), stage III: At baseline. Avoid nephrotoxic substances. (5) DVT prophylaxis: Heparin drip Full Code Dispo-cont to monitor on telemetry, pending PT/OT evals. Rosa Isela Yusuf DO [facility] Hospitalist Subjective 87 yo F with h/o noncompliance with antihypertensives presented to the ER via EMS with intermittent SOB. BP was elevated and she was admitted. TTE is pending. ROS is limited 2/2 dementia, however, patient is reporting no issues at this time. She is currently on a one-to-one observation. Physical Exam 2 Vital Signs (Past 24 Hours): Last Vital Signs Temp 36.5 C 08/02/18 11:46 Pulse 91 H 08/02/18 14:02 Resp 18 08/02/18 11:46 BP 215/124 H 08/02/18 14:02 Pulse Ox 95 08/02/18 11:46 CONSTITUTIONAL: WNWD, vitals as above, generally well-appearing, able to sit up and move independently EYES: normal conjuctivae, no scleral icterus RESPIRATORY: clear to auscultation bilaterally, no crackles, rales or wheezes, normal respiratory effort CARDIOVASCULAR: irregular rate and irreg rhythm, S1 and 2 heard without murmurs , gallops or rubs, JVD difficult to assess as she is moving around too much and having trouble following instruction, no peripheral edema GASTROINTESTINAL: soft, nontender, nondistended MUSCULOSKELETAL: strength 5/5 throughout, head is normocephalic and atraumatic , neck supple SKIN: warm and dry NEUROLOGIC: No facial palsy, no dysarthria. CN 2-12 grossly intact PSYCHIATRIC: alert, cooperative and oriented to self only. Feels she is somewhere other than in a hospital. Results & Data Laboratory Results Short CBC 08/02/18 Range/Units 02:54 WBC 6.65 (4.8-10.8) K/uL Hgb 12.3 (12.0-16.0) g/dL Hct 37.9 (37-47) % Plt Count 241 (130-400) K/uL BMP 08/02/18 02:54 Sodium 141 Potassium 3.7 Chloride 108 H Carbon Dioxide 29 BUN 21 H Creatinine 1.12 Glucose 92 Calcium 9.0 Cardiac Enzymes 08/02/18 Range/Units 02:54 Troponin I < 0.015 (0-0.045) ng/ml Liver Function 08/02/18 Range/Units 02:54 Total Bilirubin 0.7 (0.2-1) mg/dl AST 23 (15-37) U/L ALT 29 (12-78) U/L Alkaline Phosphatase 100 (45-117) U/L Albumin 3.9 (3.4-5.0) gm/dl Urine 08/02/18 Range/Units 03:30 Urine Color Yellow Urine Appearance Clear (Clear) Urine pH 7.0 (4.5-7.5) Ur Specific [place] 1.014 (1.000-1.030) Urine Protein 1+ H (Negative) Urine Glucose (UA) Negative (Negative) Medications Administered Current Inpatient Medications Acetaminophen (Tylenol) 650 mg PO Q4H PRN PRN Reason: Pain or Fever Stop: 09/01/18 08:17 Amlodipine Besylate (Norvasc) 2.5 mg PO DAILY ANA Stop: 09/02/18 08:59 Atenolol (Tenormin) 50 mg PO BID ANA Stop: 09/01/18 20:59 Prochlorperazine 5 mg/ Syringe 5 mls @ 5 mls/min IV Q6H PRN PRN Reason: Nausea And Vomiting Stop: 09/01/18 08:17 Last Admin: 08/02/18 09:47 Dose: 5 mls/min Lactated Ringer's (Lr) 1,000 mls @ 50 mls/hr IV .Q20H ONE Stop: 08/03/18 04:17 Last Admin: 08/02/18 08:46 Dose: 50 mls/hr Heparin Sodium/Dextrose (Heparin Sodium/Dextrose) 25,000 units in 500 mls @ 20 mls/hr IV .Q24H [facility]; Protocol Stop: 09/01/18 09:03 Last Admin: 08/02/18 09:29 Dose: 20 units/hr, 0.4 mls/hr Furosemide 40 mg/ Syringe 4 mls @ 4 mls/min IV ONE STA Stop: 08/02/18 14:46 Ioversol (Optiray 320 125ml) 116 ml IV ONCE PRN PRN Reason: Interaction Checking Stop: 08/06/18 11:00 Last Admin: 08/02/18 11:02 Dose: 116 ml Lisinopril (Zestril) 40 mg PO QAM [facility] Stop: 09/02/18 08:59 Nitroglycerin (Nitrostat) 0.4 mg SL UD PRN PRN Reason: Chest Pain Stop: 09/01/18 08:17 Tramadol HCl (Ultram) 25 mg PO Q4H PRN PRN Reason: Pain Stop: 09/01/18 08:17
[2018-08-02 15:46] LABS: INR 1.1 (0.9-1.1); Prothrombin Time 11.4 Seconds (9.0-12.0)
[2018-08-02 16:19] LABS: Partial Thromboplastin Ratio 1.7; Partial Thromboplastin Time 42.9 Seconds (21.0-31.0)
[2018-08-02] MEDS ORDERED: HEPARIN IV BOLUS 2,000 UNITS in SYRINGE 0 ML IV ONE (16:26)
--- NOTE | 2018-08-02 16:55 | Cardiology Consultation ---
Date of Consultation August 02, 2018 Assessment & Plan (1) SOB (shortness of breath): Mild volume overload likely on the basis of diastolic dysfunction is suggested by examination with elevated jugular venous pressure With as already ordered give single dose of IV furosemide Continue to treat hypertension (2) Hypertensive urgency: Medical noncompliance appears to be contributing significantly expect blood pressures to trend downward fairly rapidly as usual medications are resumed in the interim we will add topical nitrates Patient blood pressure as not responded initially to 2 doses of labetalol and one single dose of hydralazine (3) New onset atrial fibrillation: Newly observed on presentation well with controlled ventricular response rate chronicity uncertain patient currently anticoagulated at this time does not appear to be a good long-term anticoagulation candidate unless patient transitions into more formal care situation. Rates are well controlled on current med (4) CKD (chronic kidney disease), stage III: (5) Dementia: History of Present Illness Reason for Consultation: Hypertensive urgency, newly observed atrial fibrillation Requesting Physician: Dr. Yusuf Attending Physician: Rosa Isela Yusuf, DO History of Present Illness Patient is an 87-year-old female whose history per review of records is notable for long-standing hypertension with hypertensive heart disease chronic renal insufficiency. Preserved LV systolic function was observed with mild to moderate mitral insufficiency and echocardiogram in April. At that same time patient was being evaluated for changing mental status and medical noncompliance. Patient was brought to the emergency room earlier today with symptoms of exertional fatigue and shortness of breath. Family openly notes patient had not been taking her hypertensive medications and on presentation she was significantly hypertensive. She was incidentally noted to be in atrial fibrillation but with controlled ventricular response rate. She is referred now for further evaluation. Patient is a relatively unreliable historian but denies prior history of myocardial infarction angina pectoris or heart murmur TIA or stroke notes no bleeding difficulties melena hematochezia dysuria hematuria feels her weight has been gradually trending downward appetite's been fair. Does do activities about her home for personal care. Is more breathless when walking stairs etc.. Denies recent illness fevers chills or productive cough patient is a lifelong non-smoker uses only rare alcoholic averages Past surgical history is notable for lumbar laminectomy only. Allergies Allergy/AdvReac Type Severity Reaction Status Date / Time No Known Allergies Allergy Unverified 08/02/18 04:43 Home Medications Home Medications Medication Instructions Recorded Confirmed Type amlodipine 2.5 mg PO DAILY 08/02/18 08/02/18 History atenolol 50 mg PO DAILY 08/02/18 08/02/18 History lisinopril 40 mg PO DAILY 08/02/18 08/02/18 History meloxicam 7.5 mg PO DAILY 08/02/18 08/02/18 History Patient History Medical History HTN (hypertension) Social History Current Living Situation: Family Other Information That Helps Us Care for You: No Feels Safe at Home: Yes Safety Concerns: Feels Safe At This Time Smoking Status: Never smoker Hx Alcohol Use: Yes Alcohol type: wine Alcohol Intake Frequency: a few times a week Hx Substance Use: No Beliefs That Will Affect Care: None Preferred Language: Kiswahili Communication Ability: Effective Physical Exam 2 Vital Signs (Past 24 Hours): Last Vital Signs Temp 36.8 C 08/02/18 15:35 Pulse 76 08/02/18 15:35 Resp 20 08/02/18 15:35 BP 184/96 H 08/02/18 15:35 Pulse Ox 97 08/02/18 15:35 Constitutional: + thin; no acute distress ENMT: external ear and nose normal, oropharynx normal Neck: There is jugular venous distention noted to the angle of the jaw. No carotid bruits are present Respiratory: Auscultation: + crackles (Few crackles basilar diminished breath sounds) Cardiovascular: Extremities: + edema (1+ peripheral edema) Irregular regular, no S3 gallop no audible murmur PMI is nondisplaced Gastrointestinal (Abdomen): Soft nontender there is no abdominal bruits audible there is no palpable aortic enlargement femoral pulses are 2+ without bruit Results & Data Laboratory Results Laboratory Results - last 24 hr 08/02/18 08/02/18 08/02/18 02:54 02:54 02:54 WBC 6.65 RBC 4.24 Hgb 12.3 Hct 37.9 MCV 89.4 MCH 29.0 MCHC 32.5 RDW Std Deviation 48.2 H RDW Coeff of Matthew 14.9 H Plt Count 241 MPV 10.9 H Immature Gran % (Auto) 0.2 Neut % (Auto) 72.3 Lymph % (Auto) 17.3 Oliver % (Auto) 7.2 Eos % (Auto) 2.4 Baso % (Auto) 0.6 Immature Gran # (Auto) 0.01 Neut # (Auto) 4.81 Lymph # (Auto) 1.15 L Oliver # (Auto) 0.48 Eos # (Auto) 0.16 Baso # (Auto) 0.04 PT INR APTT PTT Ratio Sodium 141 Potassium 3.7 Chloride 108 H Carbon Dioxide 29 Anion Gap 4.0 BUN 21 H Creatinine 1.12 Est Cr Clr Drug Dosing 30.0 Est GFR ( Amer) 50.8 Est GFR (Non-Af Amer) 43.8 BUN/Creatinine Ratio 18.5 Glucose 92 Calcium 9.0 Magnesium 1.9 Total Bilirubin 0.7 AST 23 ALT 29 Alkaline Phosphatase 100 Troponin I < 0.015 Total Protein 7.5 Albumin 3.9 Globulin 3.6 Albumin/Globulin Ratio 1.1 TSH 1.790 Urine Color Urine Appearance Urine pH Ur Specific [place] Urine Protein Urine Glucose (UA) Urine Ketones Urine Blood Urine Nitrite Urine Bilirubin Urine Urobilinogen Ur Leukocyte Esterase Urine WBC (Auto) Urine RBC (Auto) U Hyaline Cast (Auto) U Epithel Cells (Auto) Urine Bacteria (Auto) Influenza Type A (PCR) Influenza Type B (PCR) 08/02/18 08/02/18 08/02/18 02:54 03:01 03:30 WBC RBC Hgb Hct MCV MCH MCHC RDW Std Deviation RDW Coeff of Matthew Plt Count MPV Immature Gran % (Auto) Neut % (Auto) Lymph % (Auto) Oliver % (Auto) Eos % (Auto) Baso % (Auto) Immature Gran # (Auto) Neut # (Auto) Lymph # (Auto) Oliver # (Auto) Eos # (Auto) Baso # (Auto) PT INR APTT 25.3 PTT Ratio 1.0 Sodium Potassium Chloride Carbon Dioxide Anion Gap BUN Creatinine Est Cr Clr Drug Dosing Est GFR ( Amer) Est GFR (Non-Af Amer) BUN/Creatinine Ratio Glucose Calcium Magnesium Total Bilirubin AST ALT Alkaline Phosphatase Troponin I Total Protein Albumin Globulin Albumin/Globulin Ratio TSH Urine Color Yellow Urine Appearance Clear Urine pH 7.0 Ur Specific [place] 1.014 Urine Protein 1+ H Urine Glucose (UA) Negative Urine Ketones Negative Urine Blood Negative Urine Nitrite Negative Urine Bilirubin Negative Urine Urobilinogen Negative Ur Leukocyte Esterase Negative Urine WBC (Auto) 1-5 Urine RBC (Auto) 0-4 U Hyaline Cast (Auto) 0 U Epithel Cells (Auto) >30 H Urine Bacteria (Auto) Negative Influenza Type A (PCR) Neg for Influ A Influenza Type B (PCR) Neg for Influ B 08/02/18 08/02/18 15:17 15:17 WBC RBC Hgb Hct MCV MCH MCHC RDW Std Deviation RDW Coeff of Matthew Plt Count MPV Immature Gran % (Auto) Neut % (Auto) Lymph % (Auto) Oliver % (Auto) Eos % (Auto) Baso % (Auto) Immature Gran # (Auto) Neut # (Auto) Lymph # (Auto) Oliver # (Auto) Eos # (Auto) Baso # (Auto) PT 11.4 INR 1.1 APTT 42.9 H PTT Ratio 1.7 Sodium Potassium Chloride Carbon Dioxide Anion Gap BUN Creatinine Est Cr Clr Drug Dosing Est GFR ( Amer) Est GFR (Non-Af Amer) BUN/Creatinine Ratio Glucose Calcium Magnesium Total Bilirubin AST ALT Alkaline Phosphatase Troponin I Total Protein Albumin Globulin Albumin/Globulin Ratio TSH Urine Color Urine Appearance Urine pH Ur Specific [place] Urine Protein Urine Glucose (UA) Urine Ketones Urine Blood Urine Nitrite Urine Bilirubin Urine Urobilinogen Ur Leukocyte Esterase Urine WBC (Auto) Urine RBC (Auto) U Hyaline Cast (Auto) U Epithel Cells (Auto) Urine Bacteria (Auto) Influenza Type A (PCR) Influenza Type B (PCR) Diagnostic Findings Echocardiogram 08/02/2018: Moderate to severe left hypertrophy with normal left systolic function EF 65% or greater there is biatrial enlargement mild mitral and tricuspid insufficiency [id number] 02:50:57 [facility] Atrial fibrillation rate [address] abnormality Abnormal ECG No previous ECGs available
[2018-08-02] MEDS: NITROGLYCERIN 2% OINTMENT 30GM TUBE EXT SCH (18:18)
[2018-08-02] MEDS: HydrALAZINE HCL 20 MG/ML VIAL IV PRN (19:17)
[2018-08-02] MEDS: ATENOLOL 50 MG TABLET PO SCH (21:11)
[2018-08-02 23:46] LABS: Partial Thromboplastin Ratio 5.4
[2018-08-02 23:58] LABS: Partial Thromboplastin Time 141.7 Seconds (21.0-31.0)
[2018-08-03] MEDS: NITROGLYCERIN 2% OINTMENT 30GM TUBE EXT SCH ×5 (00:36→23:39)
[2018-08-03 01:14] LABS: Partial Thromboplastin Ratio 3.3
[2018-08-03 01:19] LABS: Partial Thromboplastin Time 86.7 Seconds (21.0-31.0)
[2018-08-03 07:56] LABS: Basophils # (auto) 0.05 K/uL (0-0.2); Basophils % (auto) 0.6 %; Eosinophils # (auto) 0.06 K/uL (0-0.5); Eosinophils % (auto) 0.7 %; Hematocrit (blood only) 35.8 % (37-47); Hemoglobin 11.9 g/dL (12.0-16.0); Immature Granulocytes # (auto) 0.01 K/uL (0.00-0.02); Immature Granulocytes % (auto) 0.1 %; Lymphocytes # (auto) 1.53 K/uL (1.2-3.4); Lymphocytes % (auto) 18.8 %; Mean Corpuscular Hgb Conc 33.2 g/dL (32-36); Mean Corpuscular Volume 86.9 fL (80-100); Mean Platelet Volume 10.7 fL (7.4-10.4); Monocytes # (auto) 0.67 K/uL (0.11-0.59); Monocytes % (auto) 8.2 %; Neutrophils # (auto) 5.84 K/uL (1.4-6.5); Neutrophils % (auto) 71.6 %; Platelet Count 264 K/uL (130-400); RDW Coefficient of Variation 14.9 % (11.5-14.5); RDW Standard Deviation 46.7 fL (36.4-46.3); Red Blood Count 4.12 M/uL (4.2-5.4); White Blood Count 8.16 K/uL (4.8-10.8)
[2018-08-03] MEDS: HydrALAZINE HCL 20 MG/ML VIAL IV PRN (08:03)
[2018-08-03] MEDS: LISINOPRIL 40 MG TAB PO SCH (08:04)
[2018-08-03] MEDS: ATENOLOL 50 MG TABLET PO SCH ×2 (08:05→20:09)
[2018-08-03 08:17] LABS: Partial Thromboplastin Ratio 2.9
[2018-08-03 08:21] LABS: Partial Thromboplastin Time 75.3 Seconds (21.0-31.0)
[2018-08-03 08:28] LABS: BUN Creatinine Ratio 17.9 (10-20); Calcium 8.9 mg/dl (8.5-10.1); Creatinine Clr Calc Pharmacy 28.5 ml/min; Est GFR (African American) 49.7; Est GFR (Non-African American) 42.9; Magnesium 2.1 mg/dl (1.8-2.4); Potassium 3.4 mmol/L (3.5-5.1)
[2018-08-03] MEDS ORDERED: AMLODIPINE BESYLATE 5 MG TAB PO SCH ×2 (09:00→21:00)
[2018-08-03] MEDS: HEPARIN SODIUM/DEXTROSE 25,000 UNITS/500 ML BAG IV SCH ×2 (09:02→12:18)
[2018-08-03 15:59] LABS: Partial Thromboplastin Ratio 2.4
[2018-08-03 16:08] LABS: Partial Thromboplastin Time 61.2 Seconds (21.0-31.0)
[2018-08-03] MEDS: ACETAMINOPHEN 325 MG TAB PO PRN (16:22)
--- NOTE | 2018-08-03 16:43 | Hospitalist Progress Note ---
Date of Service August 03, 2018 Assessment & Plan (1) SOB (shortness of breath): Presented with SOB which is now resolved. This is chronic for the patient and likely related to one or a combination of uncontrolled hypertension , diastolic heart failure, or atrial fibrillation--not an exhaustive list. Responded well to Lasix yesterday with net 1L overnight. Cont management below. (2) Hypertensive urgency: Some changes per Cardiology-amlodipine to 5BID, Hydralazine added 10 BID. Will also add HCTZ daily. Cont parenteral agents as needed. Cont nitro. (3) New onset atrial fibrillation: Rate is controlled on admission. She is asymptomatic. Heparin drip while inpatient. Discussed case with Cardiology who feels this patient is not a good candidate for anticoagulation unless placed in a facility which the DIL is not ready/willing to do at this time. (4) Dementia: not formally diagnosed. family aware of some issues. currently oriented to self only. (5) CKD (chronic kidney disease), stage III: At baseline. Avoid nephrotoxic substances. (6) DVT prophylaxis: Heparin drip Full Code Dispo-cont to monitor on telemetry, pending PT/OT evals. Rosa Isela Yusuf DO [facility] Hospitalist Subjective ROS is negative, family at bedside, placement issues discussed. DIL doesn't want NH/SNF at this time. Pt doing well overall. Physical Exam 2 Vital Signs (Past 24 Hours): Last Vital Signs Temp 36.7 C 08/03/18 16:08 Pulse 69 08/03/18 16:08 Resp 20 08/03/18 16:08 BP 173/89 H 08/03/18 16:08 Pulse Ox 96 08/03/18 16:08 CONSTITUTIONAL: WNWD, vitals as above, generally well-appearing, able to sit up and move independently EYES: normal conjuctivae, no scleral icterus RESPIRATORY: clear to auscultation bilaterally, no crackles, rales or wheezes, normal respiratory effort CARDIOVASCULAR: irregular rate and irreg rhythm, S1 and 2 heard without murmurs , gallops or rubs, no peripheral edema GASTROINTESTINAL: soft, nontender, nondistended MUSCULOSKELETAL: strength 5/5 throughout, head is normocephalic and atraumatic , neck supple SKIN: warm and dry NEUROLOGIC: No facial palsy, no dysarthria. CN 2-12 grossly intact PSYCHIATRIC: alert, cooperative and oriented to self only. Feels she is somewhere other than in a hospital. Results & Data Laboratory Results Short CBC 08/03/18 Range/Units 07:16 WBC 8.16 (4.8-10.8) K/uL Hgb 11.9 L (12.0-16.0) g/dL Hct 35.8 L (37-47) % Plt Count 264 (130-400) K/uL BMP 08/03/18 07:16 Sodium 138 Potassium 3.4 L Chloride 103 Carbon Dioxide 25 BUN 20 H Creatinine 1.14 Glucose 108 H Calcium 8.9 Medications Administered Current Inpatient Medications Acetaminophen (Tylenol) 650 mg PO Q4H PRN PRN Reason: Pain or Fever Stop: 09/01/18 08:17 Last Admin: 08/04/18 03:05 Dose: 650 mg Amlodipine Besylate (Norvasc) 5 mg PO BID [facility] Stop: 09/02/18 20:59 Last Admin: 08/03/18 20:09 Dose: 5 mg Atenolol (Tenormin) 50 mg PO BID [facility] Stop: 09/01/18 20:59 Last Admin: 08/03/18 20:09 Dose: 50 mg Hydralazine HCl (Hydralazine Hcl) 10 mg IV Q6H PRN PRN Reason: SBP>180 Stop: 09/01/18 18:44 Last Admin: 08/03/18 08:03 Dose: 10 mg Hydralazine HCl (Apresoline) 10 mg PO BID [facility] Stop: 09/02/18 20:59 Last Admin: 08/03/18 20:08 Dose: 10 mg Prochlorperazine 5 mg/ Syringe 5 mls @ 5 mls/min IV Q6H PRN PRN Reason: Nausea And Vomiting Stop: 09/01/18 08:17 Last Admin: 08/02/18 09:47 Dose: 5 mls/min Heparin Sodium/Dextrose (Heparin Sodium/Dextrose) 25,000 units in 500 mls @ 18 mls/hr IV .Q24H ANA; Protocol Stop: 09/01/18 09:03 Last Titration: 08/03/18 19:12 Dose: 18 mls/hr Ioversol (Optiray 320 125ml) 116 ml IV ONCE PRN PRN Reason: Interaction Checking Stop: 08/06/18 11:00 Last Admin: 08/02/18 11:02 Dose: 116 ml Lisinopril (Zestril) 40 mg PO QAM ANA Stop: 09/02/18 08:59 Last Admin: 08/03/18 08:04 Dose: 40 mg Nitroglycerin (Nitrostat) 0.4 mg SL UD PRN PRN Reason: Chest Pain Stop: 09/01/18 08:17 Nitroglycerin (Nitro-Bid 2%) 1 inch EXT Q6H ANA Stop: 09/01/18 17:59 Last Admin: 08/03/18 23:39 Dose: 1 inch Tramadol HCl (Ultram) 25 mg PO Q4H PRN PRN Reason: Pain Stop: 09/01/18 08:17 Last Admin: 08/04/18 03:04 Dose: 25 mg
[2018-08-03] MEDS ORDERED: POTASSIUM CHLORIDE 10 MEQ TABCR PO STA (18:15)
--- NOTE | 2018-08-03 18:18 | Cardiology Progress Note ---
Date of Service August 03, 2018 Assessment & Plan (1) SOB (shortness of breath): Mild volume overload likely on the basis of diastolic dysfunction i initially present did respond to IV diuretics Continue to treat hypertension (2) Hypertensive urgency: Medical noncompliance appears to be contributing significantly expect blood pressures to trend downward fairly rapidly as usual medications are resumed in the interim we will add topical nitrates Patient blood pressure as not responded initially to 2 doses of labetalol and one single dose of hydralazine Blood pressures remain elevated despite resumption of home medications. Will increase amlodipine to 5 mg twice per day, add hydralazine 10 mg twice daily. Suspect patient would benefit from chronic low-dose diuretic. Consider adding low-dose hydrochlorothiazide 12.5 mg/day depending clinical course (3) New onset atrial fibrillation: Newly observed on presentation well with controlled ventricular response rate chronicity uncertain patient currently anticoagulated at this time does not appear to be a good long-term anticoagulation candidate unless patient transitions into more formal care situation. Rates are well controlled on current med (4) CKD (chronic kidney disease), stage III: (5) Dementia: Subjective Patient pleasantly confused today denies any focal complaints Physical Exam 2 Vital Signs (Past 24 Hours): Last Vital Signs Temp 36.7 C 08/03/18 16:08 Pulse 69 08/03/18 16:08 Resp 20 08/03/18 16:08 BP 173/89 H 08/03/18 16:08 Pulse Ox 96 08/03/18 16:08 Constitutional: + thin; no acute distress ENMT: external ear and nose normal, oropharynx normal Respiratory: Auscultation: + crackles (Few crackles basilar diminished breath sounds) Cardiovascular: Extremities: + edema (1+ peripheral edema)
[2018-08-03] MEDS: HydrALAZINE 10 MG TAB PO SCH (20:08)
[2018-08-03] MEDS: AMLODIPINE BESYLATE 5 MG TAB PO SCH (20:09)
[2018-08-04] MEDS: ACETAMINOPHEN 325 MG TAB PO PRN (03:05)
[2018-08-04] MEDS: NITROGLYCERIN 2% OINTMENT 30GM TUBE EXT SCH ×4 (05:41→23:42)
[2018-08-04 05:43] LABS: Hematocrit (blood only) 34.8 % (37-47); Hemoglobin 11.4 g/dL (12.0-16.0); Mean Corpuscular Hgb Conc 32.8 g/dL (32-36); Mean Corpuscular Volume 86.8 fL (80-100); Mean Platelet Volume 9.9 fL (7.4-10.4); Platelet Count 232 K/uL (130-400); RDW Coefficient of Variation 14.9 % (11.5-14.5); Red Blood Count 4.01 M/uL (4.2-5.4); White Blood Count 6.89 K/uL (4.8-10.8)
[2018-08-04 06:07] LABS: BUN Creatinine Ratio 21.6 (10-20); Calcium 8.5 mg/dl (8.5-10.1); Creatinine Clr Calc Pharmacy 30.2 ml/min; Est GFR (African American) 53.7; Est GFR (Non-African American) 46.3; Magnesium 2.2 mg/dl (1.8-2.4); Potassium 3.7 mmol/L (3.5-5.1)
[2018-08-04 06:10] LABS: Partial Thromboplastin Ratio 2.4
[2018-08-04 06:12] LABS: Partial Thromboplastin Time 63.6 Seconds (21.0-31.0)
[2018-08-04] MEDS: HydrALAZINE HCL 20 MG/ML VIAL IV PRN (08:40)
[2018-08-04] MEDS: AMLODIPINE BESYLATE 5 MG TAB PO SCH ×2 (08:41→19:25)
[2018-08-04] MEDS: HydrALAZINE 10 MG TAB PO SCH ×3 (08:41→19:24)
[2018-08-04] MEDS: LISINOPRIL 40 MG TAB PO SCH (08:41)
[2018-08-04] MEDS: hydroCHLOROthiazide 25 MG TAB PO SCH (08:41)
[2018-08-04] MEDS: ATENOLOL 50 MG TABLET PO SCH ×2 (08:42→19:25)
[2018-08-04] MEDS ORDERED: HydrALAZINE 10 MG TAB PO STA (09:59)
--- NOTE | 2018-08-04 11:36 | Hospitalist Progress Note ---
Date of Service August 04, 2018 Assessment & Plan (1) Hypertensive urgency: Hydralazine was sincreased and HCTZ added today. (2) SOB (shortness of breath): Presented with SOB which is now resolved. This is chronic for the patient and likely related to one or a combination of uncontrolled hypertension , diastolic heart failure, or atrial fibrillation--not an exhaustive list. (3) New onset atrial fibrillation: Rate is controlled on admission. She is asymptomatic. Heparin drip while inpatient. Discussed case with Cardiology who feels this patient is not a good candidate for anticoagulation unless placed in a facility which the DIL is not ready/willing to do at this time. (4) Dementia: not formally diagnosed. family aware of some issues. currently oriented to self only. (5) CKD (chronic kidney disease), stage III: At baseline. Avoid nephrotoxic substances. (6) DVT prophylaxis: Heparin drip Full Code Dispo-cont to monitor on telemetry, pending PT/OT evals. DO Gerry Aleman Hospitalist Subjective ROS is negative, family at bedside, placement issues discussed. JES doesn't want NH/SNF at this time. She continues to do well today without any symptoms. Specifically denies CP, SOB, fevers, or chills. Physical Exam 2 Vital Signs (Past 24 Hours): Last Vital Signs Temp 36.7 C 08/04/18 10:29 Pulse 55 L 08/04/18 10:29 Resp 20 08/04/18 10:29 BP 152/79 H 08/04/18 10:29 Pulse Ox 96 08/04/18 10:29 CONSTITUTIONAL: WNWD, vitals as above, generally well-appearing, able to sit up and move independently EYES: normal conjuctivae, no scleral icterus RESPIRATORY: clear to auscultation bilaterally, no crackles, rales or wheezes, normal respiratory effort CARDIOVASCULAR: irregular rate and irreg rhythm, S1 and 2 heard without murmurs , gallops or rubs, no peripheral edema GASTROINTESTINAL: soft, nontender, nondistended MUSCULOSKELETAL: strength 5/5 throughout, head is normocephalic and atraumatic , neck supple SKIN: warm and dry NEUROLOGIC: No facial palsy, no dysarthria. CN 2-12 grossly intact PSYCHIATRIC: alert, cooperative and oriented to self only. Feels she is somewhere other than in a hospital. Results & Data Laboratory Results Short CBC 08/04/18 Range/Units 05:21 WBC 6.89 (4.8-10.8) K/uL Hgb 11.4 L (12.0-16.0) g/dL Hct 34.8 L (37-47) % Plt Count 232 (130-400) K/uL BMP 08/04/18 05:21 Sodium 139 Potassium 3.7 Chloride 107 Carbon Dioxide 26 BUN 23 H Creatinine 1.07 Glucose 101 H Calcium 8.5 Medications Administered Current Inpatient Medications Acetaminophen (Tylenol) 650 mg PO Q4H PRN PRN Reason: Pain or Fever Stop: 09/01/18 08:17 Last Admin: 08/04/18 03:05 Dose: 650 mg Amlodipine Besylate (Norvasc) 5 mg PO BID [facility] Stop: 09/02/18 20:59 Last Admin: 08/04/18 19:25 Dose: 5 mg Atenolol (Tenormin) 50 mg PO BID [facility] Stop: 09/01/18 20:59 Last Admin: 08/04/18 19:25 Dose: 50 mg Hydralazine HCl (Hydralazine Hcl) 10 mg IV Q6H PRN PRN Reason: SBP>180 Stop: 09/01/18 18:44 Last Admin: 08/04/18 08:40 Dose: 10 mg Hydralazine HCl (Apresoline) 25 mg PO Q8 [facility] Stop: 09/03/18 13:59 Last Admin: 08/04/18 19:24 Dose: 25 mg Hydrochlorothiazide (Hctz) 12.5 mg PO QAM [facility] Stop: 09/03/18 08:59 Last Admin: 08/04/18 08:41 Dose: 12.5 mg Prochlorperazine 5 mg/ Syringe 5 mls @ 5 mls/min IV Q6H PRN PRN Reason: Nausea And Vomiting Stop: 09/01/18 08:17 Last Admin: 08/02/18 09:47 Dose: 5 mls/min Heparin Sodium/Dextrose (Heparin Sodium/Dextrose) 25,000 units in 500 mls @ 18 mls/hr IV .Q24H [facility]; Protocol Stop: 09/01/18 09:03 Last Admin: 08/04/18 16:16 Dose: 900 units/hr, 18 mls/hr Ioversol (Optiray 320 125ml) 116 ml IV ONCE PRN PRN Reason: Interaction Checking Stop: 08/06/18 11:00 Last Admin: 08/02/18 11:02 Dose: 116 ml Lisinopril (Zestril) 40 mg PO QAM [facility] Stop: 09/02/18 08:59 Last Admin: 08/04/18 08:41 Dose: 40 mg Nitroglycerin (Nitrostat) 0.4 mg SL UD PRN PRN Reason: Chest Pain Stop: 09/01/18 08:17 Nitroglycerin (Nitro-Bid 2%) 1 inch EXT Q6H [facility] Stop: 09/01/18 17:59 Last Admin: 08/04/18 23:42 Dose: 1 inch Tramadol HCl (Ultram) 25 mg PO Q4H PRN PRN Reason: Pain Stop: 09/01/18 08:17 Last Admin: 08/04/18 03:04 Dose: 25 mg
--- NOTE | 2018-08-04 14:32 | Cardiology Progress Note ---
Date of Service August 04, 2018 Assessment & Plan (1) SOB (shortness of breath): does not examine as volume overloaded will hold off further diuresis at this time (2) Hypertensive urgency: Medical noncompliance appears to be contributing significantly expect blood pressures to trend downward fairly rapidly as usual medications are resumed in the interim we will add topical nitrates Patient blood pressure as not responded initially to 2 doses of labetalol and one single dose of hydralazine Blood pressures remain elevated despite resumption of home medications. will uptitrate hydralazine and follow (3) New onset atrial fibrillation: Newly observed on presentation well with controlled ventricular response rate chronicity uncertain patient currently anticoagulated at this time does not appear to be a good long-term anticoagulation candidate unless patient transitions into more formal care situation. Rates are well controlled on current med (4) CKD (chronic kidney disease), stage III: (5) Dementia: Subjective Patient remains pleasantly confused today denies any focal complaints tele reviewed: afib rate controlled. Physical Exam 2 Vital Signs (Past 24 Hours): Last Vital Signs Temp 36.6 C 08/04/18 14:24 Pulse 97 H 08/04/18 14:24 Resp 20 08/04/18 14:24 BP 124/63 08/04/18 14:24 Pulse Ox 99 08/04/18 14:24 Physical Exam: General: Awake, alert and oriented x 3. No acute distress. HEENT: Normocephalic, atraumatic. Pupils equal, round and reactive to light and accommodation. Extraocular muscles are intact. Anicteric sclera. Moist mucous membranes. Neck: No JVD. No bruit. Cardiovascular: regularly irregular, unable to appreciate murmur, rub or gallop. Pulmonary: Clear to auscultation bilaterally. No rales, rhonchi, or wheezing. Abdomen: Bowel sounds x 4, soft. No rebound, guarding or tenderness. No organomegaly. Extremities: No clubbing, cyanosis or edema. +2 pedal pulses bilaterally. Skin: Warm and dry.
[2018-08-04] MEDS: HEPARIN SODIUM/DEXTROSE 25,000 UNITS/500 ML BAG IV SCH (16:16)
[2018-08-04] MEDS ORDERED: OLANZAPINE 2.5 MG TAB PO STA (20:55)
[2018-08-05] MEDS: HydrALAZINE 10 MG TAB PO SCH (05:56)
[2018-08-05 07:18] LABS: Partial Thromboplastin Ratio 2.7
[2018-08-05 07:19] LABS: Partial Thromboplastin Time 70.4 Seconds (21.0-31.0)
[2018-08-05] MEDS: AMLODIPINE BESYLATE 5 MG TAB PO SCH ×2 (09:41→21:37)
[2018-08-05] MEDS: LISINOPRIL 40 MG TAB PO SCH (09:41)
[2018-08-05] MEDS: ATENOLOL 50 MG TABLET PO SCH ×2 (09:41→21:38)
[2018-08-05] MEDS: hydroCHLOROthiazide 25 MG TAB PO SCH (09:42)
--- NOTE | 2018-08-05 13:50 | Cardiology Progress Note ---
Date of Service August 05, 2018 Assessment & Plan (1) SOB (shortness of breath): does not examine as volume overloaded will hold off further diuresis at this time ok d/c tele from cardiac standpoint (2) Hypertensive urgency: Medical noncompliance appears to be contributing significantly expect blood pressures to trend downward fairly rapidly as usual medications are resumed in the interim we will add topical nitrates Patient blood pressure as not responded initially to 2 doses of labetalol and one single dose of hydralazine Blood pressures remain elevated despite resumption of home medications. will uptitrate hydralazine to 50mg tid and follow (3) New onset atrial fibrillation: Newly observed on presentation well with controlled ventricular response rate chronicity uncertain patient currently anticoagulated at this time does not appear to be a good long-term anticoagulation candidate unless patient transitions into more formal care situation. Rates are well controlled on current med (4) CKD (chronic kidney disease), stage III: (5) Dementia: Subjective Pt seen and examined, very lethargic this AM, has not been sleeping well. No complaints reported overnight. Tele reviewed: afib rate controlled. Physical Exam 2 Vital Signs (Past 24 Hours): Last Vital Signs Temp 37.1 C 08/05/18 11:01 Pulse 78 08/05/18 11:01 Resp 15 08/05/18 11:01 BP 131/71 08/05/18 11:01 Pulse Ox 96 08/05/18 11:01
[2018-08-05] MEDS: HydrALAZINE TAB 50 MG TAB PO SCH ×2 (15:05→21:38)
--- NOTE | 2018-08-05 15:44 | Hospitalist Progress Note ---
Date of Service August 05, 2018 Assessment & Plan (1) Hypertensive urgency: Hydralazine was increased again by Cardiology. Better control and likely dc to [facility] per Case Management. (2) New onset atrial fibrillation: Rate is controlled on admission. She is asymptomatic. Heparin drip while inpatient. Discussed case with Cardiology who feels this patient is not a good candidate for anticoagulation unless placed in a facility which the DIL is not ready/willing to do at this time. (3) Dementia: not formally diagnosed. family aware of some issues. currently oriented to self only. Transition to [facility]. 24hr supervision in the home recommended to the family strongly. (4) CKD (chronic kidney disease), stage III: At baseline. Avoid nephrotoxic substances. (5) DVT prophylaxis: Heparin drip Full Code Dispo-cont to monitor on telemetry, pending PT/OT evals. DO Gerry Aleman Hospitalist Subjective 87-year-old female with dementia presents with hypertensive urgency and new onset A. fib. When asked where she is today she thinks she is in [place]. She is not oriented to time. She has no recollection of why she is in the hospital. Review of systems is otherwise negative. Physical Exam 2 Vital Signs (Past 24 Hours): Last Vital Signs Temp 37.4 C 08/05/18 14:50 Pulse 76 08/05/18 14:50 Resp 20 08/05/18 14:50 BP 124/69 08/05/18 14:50 Pulse Ox 96 08/05/18 14:50 CONSTITUTIONAL: WNWD, vitals as above, generally well-appearing, able to sit up and move independently EYES: normal conjuctivae, no scleral icterus RESPIRATORY: clear to auscultation bilaterally, no crackles, rales or wheezes, normal respiratory effort CARDIOVASCULAR: irregular rate and irreg rhythm, S1 and 2 heard without murmurs , gallops or rubs, no peripheral edema GASTROINTESTINAL: soft, nontender, nondistended MUSCULOSKELETAL: strength 5/5 throughout, head is normocephalic and atraumatic , neck supple SKIN: warm and dry NEUROLOGIC: No facial palsy, no dysarthria. CN 2-12 grossly intact PSYCHIATRIC: alert, cooperative and oriented to self only. Feels she is somewhere other than in a hospital. Results & Data Medications Administered Current Inpatient Medications Acetaminophen (Tylenol) 650 mg PO Q4H PRN PRN Reason: Pain or Fever Stop: 09/01/18 08:17 Last Admin: 08/04/18 03:05 Dose: 650 mg Amlodipine Besylate (Norvasc) 5 mg PO BID [facility] Stop: 09/02/18 20:59 Last Admin: 08/06/18 08:06 Dose: 5 mg Atenolol (Tenormin) 50 mg PO BID [facility] Stop: 09/01/18 20:59 Last Admin: 08/06/18 08:07 Dose: Not Given Hydralazine HCl (Hydralazine Hcl) 10 mg IV Q6H PRN PRN Reason: SBP>180 Stop: 09/01/18 18:44 Last Admin: 08/04/18 08:40 Dose: 10 mg Hydralazine HCl (Apresoline) 50 mg PO Q8 [facility] Stop: 09/04/18 13:59 Last Admin: 08/06/18 06:09 Dose: 50 mg [facility] ([facility]) [facility] Stop: 09/03/18 08:59 Last Admin: 08/06/18 08:06 Dose: 12.5 mg Prochlorperazine 5 mg/ Syringe 5 mls @ 5 mls/min IV Q6H PRN PRN Reason: Nausea And Vomiting Stop: 09/01/18 08:17 Last Admin: 08/02/18 09:47 Dose: 5 mls/min Heparin Sodium/Dextrose (Heparin Sodium/Dextrose) 25,000 units in 500 mls @ 17 mls/hr IV .Q24H [facility]; Protocol Stop: 09/01/18 09:03 Last Titration: 08/06/18 08:11 Dose: 850 units/hr, 17 mls/hr Lisinopril (Zestril) 40 mg PO QAM [facility] Stop: 09/02/18 08:59 Last Admin: 08/06/18 08:06 Dose: 40 mg Nitroglycerin (Nitrostat) 0.4 mg SL UD PRN PRN Reason: Chest Pain Stop: 09/01/18 08:17 Tramadol HCl (Ultram) 25 mg PO Q4H PRN PRN Reason: Pain Stop: 09/01/18 08:17 Last Admin: 08/04/18 03:04 Dose: 25 mg Warfarin Sodium (Coumadin) 5 mg PO DAILY@1600 [facility] Stop: 09/05/18 15:59
[2018-08-05] MEDS: HEPARIN SODIUM/DEXTROSE 25,000 UNITS/500 ML BAG IV SCH (19:54)
[2018-08-06] MEDS: HydrALAZINE TAB 50 MG TAB PO SCH ×3 (06:09→21:08)
[2018-08-06 07:54] LABS: Partial Thromboplastin Ratio 2.9
[2018-08-06] MEDS: hydroCHLOROthiazide 25 MG TAB PO SCH (08:06)
[2018-08-06] MEDS: AMLODIPINE BESYLATE 5 MG TAB PO SCH ×2 (08:06→21:07)
[2018-08-06] MEDS: LISINOPRIL 40 MG TAB PO SCH (08:06)
[2018-08-06] MEDS: ATENOLOL 50 MG TABLET PO SCH ×2 (08:07→21:08)
--- NOTE | 2018-08-06 10:27 | Cardiology Progress Note ---
Date of Service August 06, 2018 Assessment & Plan (1) SOB (shortness of breath): does not examine as volume overloaded will hold off further diuresis at this time ok d/c tele from cardiac standpoint (2) Hypertensive urgency: Medical noncompliance appears to be contributing significantly expect blood pressures to trend downward fairly rapidly as usual medications are resumed in the interim we will add topical nitrates Patient blood pressure as not responded initially to 2 doses of labetalol and one single dose of hydralazine BP now well controlled cont current doses of amlodipine, atenolol, hydralazine, hctz and lisinopril (3) New onset atrial fibrillation: Newly observed on presentation well with controlled ventricular response rate chronicity uncertain patient currently anticoagulated at this time does not appear to be a good long-term anticoagulation candidate unless patient transitions into more formal care situation. Rates are well controlled on current med will await decision from family on patient placement given hx of noncompliance, would only recommend [facility] anticoagulation should she be in a monitored setting (4) CKD (chronic kidney disease), stage III: (5) Dementia: Subjective Pt seen and examined, without complaint. Denies cp, sob, palpitations, lightheadedness or dizziness. Tele reviewed: afib, rate controlled. Review of Systems All systems reviewed & are unremarkable except as noted in HPI & below Physical Exam 2 Vital Signs (Past 24 Hours): Last Vital Signs Temp 37.3 C 08/06/18 07:08 Pulse 62 08/06/18 07:08 Resp 18 08/06/18 07:08 BP 125/59 L 08/06/18 07:08 Pulse Ox 96 08/06/18 07:08 Physical Exam: General: Awake, alert and oriented x 3. No acute distress. HEENT: Normocephalic, atraumatic. Pupils equal, round and reactive to light and accommodation. Extraocular muscles are intact. Anicteric sclera. Moist mucous membranes. Neck: No JVD. No bruit. Cardiovascular: regularly irregular, unable to appreciate murmur, rub or gallop. Pulmonary: Clear to auscultation bilaterally. No rales, rhonchi, or wheezing. Abdomen: Bowel sounds x 4, soft. No rebound, guarding or tenderness. No organomegaly. Extremities: No clubbing, cyanosis or edema. +2 pedal pulses bilaterally. Skin: Warm and dry.
--- NOTE | 2018-08-06 10:31 | Cardiology Progress Note ---
Date of Service August 06, 2018 Subjective addendum; pt will be placed at [facility], will start coumadin. 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 Physical Exam 2 Vital Signs (Past 24 Hours): Last Vital Signs Temp 37.3 C 08/06/18 07:08 Pulse 62 08/06/18 07:08 Resp 18 08/06/18 07:08 BP 125/59 L 08/06/18 07:08 Pulse Ox 96 08/06/18 07:08
[2018-08-06 14:42] LABS: Partial Thromboplastin Ratio 2.4
[2018-08-06 14:44] LABS: Partial Thromboplastin Time 62.6 Seconds (21.0-31.0)
[2018-08-06] MEDS: WARFARIN SOD 5 MG TAB PO SCH (16:23)
--- NOTE | 2018-08-06 17:59 | Hospitalist Progress Note ---
Date of Service August 06, 2018 Assessment & Plan (1) Hypertensive urgency: Controlled on current therapy (2) New onset atrial fibrillation: Rate is controlled on admission. She is asymptomatic. Heparin drip while inpatient. Discussed case with Cardiology who feels this patient is not a good candidate for anticoagulation unless placed in a facility which the DIL is not ready/willing to do at this time. For now, as she is going to [facility] , coumadin was started but this should be reassessed if she is to return home. (3) Dementia: not formally diagnosed. family aware of some issues. currently oriented to self only. Transition to [facility]. 24hr supervision in the home recommended to the family strongly. (4) CKD (chronic kidney disease), stage III: At baseline. Avoid nephrotoxic substances. (5) DVT prophylaxis: Heparin drip Full Code Dispo-to [facility] DO Gerry Aleman Hospitalist Subjective ROS is negative today Physical Exam 2 Vital Signs (Past 24 Hours): Last Vital Signs Temp 37 C 08/06/18 15:50 Pulse 78 08/06/18 15:50 Resp 18 08/06/18 15:50 BP 135/71 08/06/18 15:50 Pulse Ox 94 08/06/18 15:50 CONSTITUTIONAL: WNWD, vitals as above, generally well-appearing, able to sit up and move independently EYES: normal conjuctivae, no scleral icterus RESPIRATORY: clear to auscultation bilaterally, no crackles, rales or wheezes, normal respiratory effort CARDIOVASCULAR: irregular rate and irreg rhythm, S1 and 2 heard without murmurs , gallops or rubs, no peripheral edema GASTROINTESTINAL: soft, nontender, nondistended MUSCULOSKELETAL: strength 5/5 throughout, head is normocephalic and atraumatic , neck supple SKIN: warm and dry NEUROLOGIC: No facial palsy, no dysarthria. CN 2-12 grossly intact PSYCHIATRIC: alert, cooperative and oriented to self only. Feels she is somewhere other than in a hospital. Results & Data Medications Administered Current Inpatient Medications Acetaminophen (Tylenol) 650 mg PO Q4H PRN PRN Reason: Pain or Fever Stop: 09/01/18 08:17 Last Admin: 08/04/18 03:05 Dose: 650 mg Amlodipine Besylate (Norvasc) 5 mg PO BID [facility] Stop: 09/02/18 20:59 Last Admin: 08/06/18 21:07 Dose: 5 mg Atenolol (Tenormin) 50 mg PO BID [facility] Stop: 09/01/18 20:59 Last Admin: 08/06/18 21:08 Dose: 50 mg Hydralazine HCl (Hydralazine Hcl) 10 mg IV Q6H PRN PRN Reason: SBP>180 Stop: 09/01/18 18:44 Last Admin: 08/04/18 08:40 Dose: 10 mg Hydralazine HCl (Apresoline) 50 mg PO Q8 [facility] Stop: 09/04/18 13:59 Last Admin: 08/06/18 21:08 Dose: 50 mg Hydrochlorothiazide (Hctz) 12.5 mg PO QAM [facility] Stop: 09/03/18 08:59 Last Admin: 08/06/18 08:06 Dose: 12.5 mg Prochlorperazine 5 mg/ Syringe 5 mls @ 5 mls/min IV Q6H PRN PRN Reason: Nausea And Vomiting Stop: 09/01/18 08:17 Last Admin: 08/02/18 09:47 Dose: 5 mls/min Heparin Sodium/Dextrose (Heparin Sodium/Dextrose) 25,000 units in 500 mls @ 17 mls/hr IV .Q24H [facility]; Protocol Stop: 09/01/18 09:03 Last Admin: 08/07/18 00:50 Dose: 850 units/hr, 17 mls/hr Lisinopril (Zestril) 40 mg PO QAM [facility] Stop: 09/02/18 08:59 Last Admin: 08/06/18 08:06 Dose: 40 mg Nitroglycerin (Nitrostat) 0.4 mg SL UD PRN PRN Reason: Chest Pain Stop: 09/01/18 08:17 Tramadol HCl (Ultram) 25 mg PO Q4H PRN PRN Reason: Pain Stop: 09/01/18 08:17 Last Admin: 08/04/18 03:04 Dose: 25 mg Warfarin Sodium (Coumadin) 5 mg PO DAILY@1600 [facility] Stop: 09/05/18 15:59 Last Admin: 08/06/18 16:23 Dose: 5 mg
[2018-08-07] MEDS: HEPARIN SODIUM/DEXTROSE 25,000 UNITS/500 ML BAG IV SCH (00:50)
[2018-08-07] MEDS: HydrALAZINE TAB 50 MG TAB PO SCH ×2 (04:55→13:56)
[2018-08-07 06:35] LABS: Partial Thromboplastin Ratio 2.6
[2018-08-07 06:51] LABS: Partial Thromboplastin Time 68.3 Seconds (21.0-31.0)
[2018-08-07] MEDS: ATENOLOL 50 MG TABLET PO SCH (08:26)
[2018-08-07] MEDS: AMLODIPINE BESYLATE 5 MG TAB PO SCH (08:26)
[2018-08-07] MEDS: hydroCHLOROthiazide 25 MG TAB PO SCH (08:26)
[2018-08-07] MEDS: LISINOPRIL 40 MG TAB PO SCH (08:26)
[2018-08-07] MEDS ORDERED: ARTIFICIAL TEARS OPB PRN (12:45)
[2018-08-07] MEDS: WARFARIN SOD 5 MG TAB PO SCH (16:00)
--- NOTE | 2018-08-09 12:27 | Discharge Summary ---
Date of Service August 09, 2018 Admission HPI Per Admitting Provider History obtained from patient, family, and records. Patient is a fair historian. Medical history significant for hypertension, mitral regurgitation as per records, osteoarthritis. Patient seen at PCPs office 3 months ago for multiple concerns. Medication noncompliance, memory issues, exertional SOB symptoms. Patient denies depression. SBP during encounter was 170s. Outpatient TTE showed EF of 55%. This morning, patient had worsening shortness of breath symptoms. No chest pain. Bilateral leg swelling. No cough symptoms. SBP at the ER 190-220s. Patient noted to be in A. fib. Patient given IV labetalol followed by oral Norvasc, atenolol, and lisinopril medications. 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 Admission Exam Per Admitting Provider GENERAL: Comfortable slightly anxious, oriented to year, no respiratory distress SKIN: Normal color, warm HEENT: [place] palpebral conjunctivae, no ptosis, moist buccal mucosa NECK : Supple, short neck, no tenderness CHEST : CTA, no tenderness HEART : Irregular, systolic murmur ABDOMEN: Some distention, nontender EXTREMITIES : Bilateral LE swelling, no LE tenderness, no other conspicuous deformities noted NEUROLOGIC : Oriented to year, no facial asymmetry, mild hearing impairment, gait and stance not assessed Principal Diagnosis Hypertensive urgency New onset atrial fibrillation Discharge Exam CONSTITUTIONAL: WNWD, vitals as above, generally well-appearing, able to sit up and move independently EYES: normal conjuctivae, no scleral icterus RESPIRATORY: clear to auscultation bilaterally, no crackles, rales or wheezes, normal respiratory effort CARDIOVASCULAR: irregular rate and irreg rhythm, S1 and 2 heard without murmurs , gallops or rubs, no peripheral edema GASTROINTESTINAL: soft, nontender, nondistended MUSCULOSKELETAL: strength 5/5 throughout, head is normocephalic and atraumatic , neck supple SKIN: warm and dry NEUROLOGIC: No facial palsy, no dysarthria. CN 2-12 grossly intact PSYCHIATRIC: alert, cooperative and oriented to self only. Feels she is somewhere other than in a hospital. Discharge Data Allergies Allergy/AdvReac Type Severity Reaction Status Date / Time No Known Allergies Allergy Unverified 08/02/18 04:43 Consultations 08/02/18 06:04 ED Decision to Admit Stat 08/02/18 08:18 Consult Cardiology Routine Consult Case Management - Discharge Planning Routine Ordered Studies 08/02/18 06:49 CT angio chest PE protocol Stat US venous doppler LE Routine Hospital Course (1) Hypertensive urgency: (2) New onset atrial fibrillation: (3) Dementia: (4) CKD (chronic kidney disease), stage III: 87-year-old female presented to the ER via EMS with family secondary to intermittent shortness of breath that began earlier that day. Her daughter reported the patient had been noncompliant with blood pressure medicines at home. She was noted to be on amlodipine 2.5 daily, atenolol 50 mg daily, lisinopril 40 mg daily. On arrival blood pressure was 173/95 which increased to well over 200. She was given labetalol 10 mg IV and was admitted to the telemetry floor. She was restarted on her home medications but required additional parenteral therapy with labetalol and hydralazine IV. Cardiology was consulted in the setting of new onset atrial fibrillation and also applied nitroglycerin paste which did not do much to improve her pressure. After her p.o. medication kicked in she still required additional changes to her oral medication including titration of her amlodipine to 5 mg p.o. twice daily and atenolol to 50 mg p.o. twice daily. Hydralazine was added and quickly titrated up to 50 mg p.o. 3 times daily and hydrochlorothiazide was added with 12.5 mg p.o. daily. Lisinopril 40 mg p.o. daily was continued. Regarding her atrial fibrillation, she was noted to have a normal rate since admission with RVR never been an issue for her during the hospitalization. As she was Shukri on atenolol this was not adjusted aside for blood pressure control. She was started on a heparin drip empirically, however, in the setting of dementia which was not formally diagnosed but which was very clear on physical exam, she was not deemed a good candidate for long-term anticoagulation outside of a facility. She initially was fine with going to a nursing facility as transition to home, however, when this was denied, the patient and family decided to go home despite questionable 24/7 care available in the home, against the advice of physical therapy and the medical team. Therefore she was placed on Coumadin initially, and when this changed Coumadin was discontinued at discharge. She otherwise had an uneventful hospital course and was stable at discharge with close recommended primary care follow-up for repeat blood work in 2 weeks and rechecking of blood pressure closely. During admission she underwent a TTE which revealed severe concentric left ventricular hypertrophy, normal left ventricular systolic function, EF 65-70%. The left atrium was mildly dilated, the right atrium was moderately dilated and trace valvular disease was seen. Total Time Total Time Spent Total Time Spent (In Minutes): 60 Total Time Includes: Examination of the Patient, Discharge Planning, Medication Reconciliation and Communication With Other Providers Discharge Plan Discharge Items Patient Disposition: Transfer Snf Fac Reason For Visit: AF Discharge Diagnosis: Hypertensive urgency New onset atrial fibrillation Discharge Goals: Improve disease control Activity: Resume your previous activity Non-emergency contact: Primary Care Provider and Director [employer] Call non-emergency contact if: you have any medication questions, your symptoms worsen, your pain is not controlled and you have a fever Follow-up/Referrals: Bill Ornelas DO [Physician] - Cheryl Grider MD [Primary Care Provider] - Diet: Heart Healthy Diet Texture: Dental soft (bite-sized) Addtl Provider Instructions: Please take all medications as instructed on discharge list below. It is recommended that you schedule a one week hospital follow-up appointment with your primary care physician. You will need a BASIC METABOLIC PANEL in two weeks time after medication changes /starting new antihypertensives. This test is non-fasting, and can be ordered through your primary care provider on hospital follow-up. It was a pleasure taking care of you! Please call if you have any questions or problems. You can reach a [facility] hospitalist on duty at [facility] 24 hours a day by calling [phone]. Take care of yourself. Rosa Isela Yusuf DO [facility] Hospitalist Prescriptions: New atenolol 50 mg Tablet 50 mg PO BID 30 Days Qty: 60 RF: 0 amlodipine [Norvasc] 5 mg Tablet 5 mg PO BID Qty: 30 RF: 0 hydralazine 50 mg Tablet 50 mg PO Q8 30 Days Qty: 90 RF: 0 hydrochlorothiazide 12.5 mg tablet 12.5 mg PO DAILY Qty: 30 RF: 0 Continue lisinopril 40 mg tablet 40 mg PO DAILY RF: 0 Discontinued amlodipine 2.5 mg tablet 2.5 mg PO DAILY RF: 0 meloxicam 7.5 mg tablet 7.5 mg PO DAILY RF: 0 atenolol 50 mg tablet 50 mg PO DAILY RF: 0 Stand-Alone Forms: [facility] Discharge Orders: Discharge Order (Routine); Ordered 08/07/18 Ordered By: Rosa Isela Yusuf Skilled Items Patient informed of condition?: Yes DNR: No Discharge Level of Care: Skilled Communicable Disease: No Discharge Prognosis: Stable Admission Data Admit Date/Time: 08/02/18 06:52 Attending Provider: Rosa Isela Yusuf Admit Provider: Alonso Astudillo Primary Care Provider: Cheryl Grider Other Providers: Alonso Astudillo ; Bill Ornelas ; Sky Kwan ; Gonzalo Romero ; Chago Dale ; Rashard Perez ; Victor Hugo Flannery ; Marina Freeman ; Carlota Salinas Service: Telemetry Other Interventions: Discharge Summary Assessment (RN) Last Done: 08/07/18 19:08 DC Date/Time DO NOT enter until pt leaves facility: 08/07/18 19:52
== END 2018-08-07 19:52 | DRG 310 ==
LOC: ED 02:46 → 2S 06:52
DX: F03.90 Unspecified dementia, unspecified severity, without behavioral disturbance, psychotic disturbance, mood disturbance, and anxiety; I16.0 Hypertensive urgency; I48.91 Unspecified atrial fibrillation; N18.3 Chronic kidney disease, stage 3 (moderate); Z82.49 Family history of ischemic heart disease and other diseases of the circulatory system; Z91.14 Patient's other noncompliance with medication regimen

== ENCOUNTER 2018-10-12 20:38 | Inpatient (IN) ==
[2018-10-12] MEDS ORDERED: NITROGLYCERIN SL 0.4 MG/TAB TAB SL PRN (22:47)
[2018-10-12] MEDS: CARVEDILOL 25 MG TAB PO SCH (23:33)
[2018-10-12] MEDS ORDERED: POTASSIUM CHLORIDE 20 MEQ TABCR PO STA (23:36)
--- NOTE | 2018-10-13 00:25 | History & Physical Report ---
Date of Service October 12, 2018 Assessment & Plan (1) SOB (shortness of breath): SOB (shortness of breath) Multifactorial : Mild CHF decompensation Viral bronchitis (no sepsis), rule out flu Marked clinical improvement after initial intervention at [facility] emergency room. Patient currently comfortable, has no recollection of events prior to readmission. Body weight close to baseline on review of inpatient documented weights. HTN, elevated secondary to missed nighttime medication A. fib, rate controlled, patient not deemed to be a good candidate for long-term anticoagulation at current residence as per records Leg swelling secondary to CHF rule out DVT Hyperglycemia secondary to steroid administration at [place] [facility] Chronic anemia, hemoglobin at baseline hx dementia, increasing functional disability PCU Continue home oral Lasix dose while monitoring daily renal function Strict I/Os, daily weights, CHF education for patient's caregiver/family flu swab Supportive measures for presumptive viral bronchitis Facilitate nighttime Coreg and Hydralazine for BP LE venous Dopplers ro DVT PT OT eval DVT prophylaxis. Lovenox subcu Full code Patient's [id number] requesting updates from providers. Ms. Aleah Moya, contact #[phone]. History of Present Illness Chief Complaint: CHF as per records Primary Care Provider: Cheryl Grider History obtained from patient, family, and records. Limited history from patient secondary to dementia. Medical history significant for chronic diastolic heart failure EF 65 to 70% TTE July 2018, hypertension, A. fib not on anti-coagulation, dementia, chronic anemia baseline hemoglobin 10-11 Recent confinement July 2018 for hypertensive urgency, new onset A. fib. Oral anti-coagulation for new onset A. fib felt to be risky given patient/family decision to go home despite questionable / care as per documentation. As per patient daughter, patient seen at [place] [facility] 5 days ago for cough symptoms. Symptoms attributed to bronchitis, patient discharged home. Patient [id number] later messaged Johnathon at home nurse that patient was not feeling well, need for anxiety medication to calm patient. Patient brought to the [facility] ER today due to productive cough increased shortness of breath, increased leg swelling. Patient received IV Lasix, Nitropaste, Solu-Medrol, and DuoNeb treatment at the ER. Patient transferred to [facility] as per patient's family's request. Patient has no recollection of events of the week. 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, lives with [id number] Allergies Allergy/AdvReac Type Severity Reaction Status Date / Time No Known Allergies Allergy Unverified 10/13/18 00:48 Home Medications Home Medications Medication Instructions Recorded Confirmed Type acetaminophen [Tylenol] 650 mg PO Q6H PRN 10/13/18 10/13/18 History aspirin 81 mg PO DAILY 10/13/18 10/13/18 History carvedilol 25 mg PO BID 10/13/18 10/13/18 History cholecalciferol (vitamin D3) 1,000 unit PO DAILY 10/13/18 10/13/18 History [Vitamin D3] dextromethorphan-guaifenesin 2 tab-cap PO Q12H PRN 10/13/18 10/13/18 History furosemide [Lasix] 20 mg PO DAILY 10/13/18 10/13/18 History hydralazine 50 mg PO Q8H 10/13/18 10/13/18 History lisinopril 40 mg PO DAILY 10/13/18 10/13/18 History losartan 100 mg PO DAILY 10/13/18 10/13/18 History yodysops-klaatnhpsHv-iayrlxjpN 1 applic TOPICAL BID 10/13/18 10/13/18 History [Triple Antibiotic] Past Med/Surg History Medical History DVT prophylaxis CKD (chronic kidney disease), stage III Dementia SOB (shortness of breath) Hypertensive urgency (Acute) New onset atrial fibrillation (Acute) Acute right-sided CHF (congestive heart failure) (Inactive) HTN (hypertension) Social History Preferred Language: Kazakh Communication Ability: Effective 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 Beliefs That Will Affect Care: None Current Living Situation: Family Current Living Situation Comment: Lives with son and dtr in law Other Information That Helps Us Care for You: No Feels Safe at Home: Yes Safety Concerns: Feels Safe At This Time Smoking Status: Never smoker Hx Alcohol Use: No Hx Substance Use: No Review of Systems Could not be reliably obtained Physical Exam Vital Signs (Past 24 Hours): Last Vital Signs Temp 36.8 C 10/12/18 22:36 Pulse 84 10/12/18 22:36 Resp 20 10/12/18 22:36 BP 181/93 H 10/12/18 22:36 Pulse Ox 96 10/12/18 22:36 Physical Exam: GENERAL: Comfortable, demented, slightly anxious, no respiratory distress SKIN: Pallor, warm HEENT: Pale palpebral conjunctivae, no ptosis, dry buccal mucosa NECK : Supple, no tenderness CHEST : Decreased breath sounds, no tenderness HEART : Irregular, systolic murmur ABDOMEN: Some distention, nontender EXTREMITIES : Minimal LE swelling, no tenderness, no other conspicuous deformities noted NEUROLOGIC : Demented, no facial asymmetry, gait and stance not assessed Results & Data Laboratory Results [facility] labs October 12, 2018 Hemoglobin 11, hematocrit 34, white cell count was 11.2, platelets 354 Sodium 142 potassium 3.6 chloride 107 CO2 26 BUN 22 creatinine 1.14 glucose 136 BNP was greater than 5000 Troponin 0.02 INR 1.2 ABG pH 7.46 PCO2 30 PO2 83 O2 sats 96 on room air Blood cultures x2 pending Lactic acid 1 Diagnostic Findings ([facility] 10/12/18) Chest x-ray official read: Cardiomegaly with minimal edema likely. EKG as per my interpretation: Rate 80, A. fib, T wave flattening inferior leads, PVCs
[2018-10-13 00:57] LABS: Hematocrit (blood only) 31.2 % (37-47); Hemoglobin 10.4 g/dL (12.0-16.0); Immature Granulocytes # (auto) 0.01 K/uL (0.00-0.02); Immature Granulocytes % (auto) 0.1 %; Lymphocytes # (auto) 0.54 K/uL (1.2-3.4); Mean Corpuscular Hgb Conc 33.3 g/dL (32-36); Mean Corpuscular Volume 87.4 fL (80-100); Mean Platelet Volume 9.6 fL (7.4-10.4); Monocytes % (auto) 1.1 %; Neutrophils # (auto) 8.29 K/uL (1.4-6.5); Neutrophils % (auto) 92.8 %; Platelet Count 255 K/uL (130-400); RDW Coefficient of Variation 15.4 % (11.5-14.5); RDW Standard Deviation 49.3 fL (36.4-46.3); Red Blood Count 3.57 M/uL (4.2-5.4); White Blood Count 8.94 K/uL (4.8-10.8)
[2018-10-13 01:16] LABS: BUN Creatinine Ratio 20.1 (10-20); Calcium 8.2 mg/dl (8.5-10.1); Creatinine Clr Calc Pharmacy 32.3 ml/min; Est GFR (African American) 55.6; Est GFR (Non-African American) 47.9; Magnesium 2.1 mg/dl (1.8-2.4); Potassium 3.5 mmol/L (3.5-5.1)
[2018-10-13 01:20] LABS: Troponin I 0.017 ng/ml (0-0.045)
[2018-10-13] MEDS ORDERED: XOPENEX/ATROVENT 1.25mg/0.5MG NEB COMBO NEB PRN (03:26)
[2018-10-13] MEDS ORDERED: guaiFENesin SUGAR FREE 200 MG/10 ML UDC PO PRN (03:26)
[2018-10-13 04:07] LABS: Influenza A virus by PCR Neg for Influ A (Neg); Influenza B virus by PCR Neg for Influ B (Neg)
[2018-10-13 04:08] LABS: Albumin Level 3.1 gm/dl (3.4-5.0)
[2018-10-13 04:14] LABS: INR 1.1 (0.9-1.1); Prothrombin Time 10.9 Seconds (9.0-12.0)
[2018-10-13] MEDS: HydrALAZINE TAB 50 MG TAB PO SCH ×3 (05:49→20:21)
--- NOTE | 2018-10-13 07:48 | Ultrasound Report ---
ULTRASOUND BILATERAL LOWER EXTREMITY VENOUS CLINICAL HISTORY: Lower extremity edema. COMPARISON STUDY: Bilateral lower extremity venous ultrasound dated 08/02/2018. TECHNIQUE: Real-time, grayscale, and color Doppler sonography of the deep veins of the right and left lower extremity was performed from the inguinal crease to the calf. Compression and augmentation wer e utilized. FINDINGS: There is no sonographic evidence of deep venous thrombosis identified in the right or left lower extremity. The common femoral, superficial femoral, and popliteal veins are patent and normally compressible bilaterally. The greater saphenous vein and the profunda femoris vein at the junction w ith the common femoral vein are clear in both legs. The visualized calf veins are patent bilaterally. IMPRESSION: There is no sonographic evidence of deep venous thrombosis identified in the right or lef t lower extremity. Electronically signed by: Oscar Lee M.D. 10/13/2018 7:47 AM
[2018-10-13] MEDS: CARVEDILOL 25 MG TAB PO SCH ×2 (07:50→20:21)
[2018-10-13] MEDS: ASPIRIN 81 MG ECTAB PO SCH (07:50)
--- NOTE | 2018-10-13 08:34 | XRay Report ---
SINGLE VIEW CHEST CLINICAL HISTORY: Dyspnea. FINDINGS: An AP, portable, upright chest radiograph is compared to study dated 08/22/2018 and correlat ed with chest CT dated 08/02/2018. The examination is significantly degraded by portable technique and patient rotation. The heart is enlarged and there is atherosclerotic calcification of the thoracic a kinsey. The pulmonary vasculature is noncongested. Enlargement of the central pulmonary arteries sugges ts pulmonary artery hypertension. Chronic interstitial thickening is similar to previous. No airspace consolidation or large pleural effusion is identified. No pneumothorax is seen. The skeletal structu res are osteopenic. The bony thorax is grossly intact. Degenerative change and scoliosis are noted in the thoracic spine. IMPRESSION: Cardiomegaly with no acute cardiopulmonary abnormality. Electronically signed by: Oscar Lee M.D. 10/13/2018 8:33 AM
[2018-10-13] MEDS ORDERED: LOSARTAN POTASSIUM 50 MG TAB PO SCH (09:00)
[2018-10-13] MEDS ORDERED: FUROSEMIDE 20 MG TAB PO SCH (09:00)
[2018-10-13] MEDS ORDERED: ENOXAPARIN INJ 30 MG/0.3 ML SYR SQ SCH (09:00)
[2018-10-13] MEDS ORDERED: CARVEDILOL 25 MG TAB PO SCH (09:00)
[2018-10-13] MEDS: ACETAMINOPHEN 325 MG TAB PO PRN (14:30)
--- NOTE | 2018-10-13 17:03 | Hospitalist Progress Note ---
Date of Service October 13, 2018 Assessment & Plan (1) Dyspnea: She may have had some mild CHF as there was minimal interstitial edema seen on the chest x-ray at outside ER. However, she is euvolemic today and is doing well on her home dose of Lasix 20 mg p.o. daily. She appears compensated at this time. I see no reason for repeat echocardiogram at this time. She does have a cough present that is nonproductive and a clinical picture consistent with some upper respiratory illness possibly secondary to a virus. Continue supportive care. (2) HTN (hypertension): Controlled, continue home regimen of hydralazine, carvedilol, losartan. (3) Acute urinary retention: There is a Tovar in place for reported acute urinary retention reported from outside ER. Will screen her for infection from the catheter and attempt to remove watching for trial of void prior to discharge. (4) Dementia: Likely at baseline mental status. Will discuss with family tomorrow. Con tinue with good day night cycles and efforts to prevent delirium as she is higher risk for this in the hospital. (5) DVT prophylaxis: Lovenox Full code Dispo-likely to home in 1-2 days pending PT/OT recommendations. Rosa Isela Yusuf DO [facility] Hospitalist Subjective 87-year-old female arrived to [facility] on 10/12 with a history of shortness of breath for the past several days. She has a history of dementia and is a poor historian. At the [facility], an x-ray was performed revealing minimal interstitial edema. A arterial blood gas was performed with a pH of 7.47 and CO2 of 30. Diminished breath sounds were heard on exam in addition to expiratory wheezing and fine crackles. A Tovar catheter was placed for reported acute urinary retention. Per [facility] records it is not clear how much volume was present on a bladder scan or what her post catheter void amount was. She was administered a nebulizer treatment and did not require supplemental oxygen saturating well on room air. Lasix 40 mg IV x1 dose was administered. Solu-Medrol 60 mg IV push was administered. Nitro paste was applied to her chest. An EKG revealed atrial fibrillation. She arrived to [facility] overnight with blood pressure elevated in the 170-180 range systolic this improved into the 130s the next morning. She continued to oxygenate well on room air despite reporting some shortness of breath. She does have a cough that is present and is thought to have some bronchitis. Flu was checked and was negative. No leukocytosis was present, troponin was negative on arrival. A chest x-ray was performed revealing no acute cardiopulmonary abnormality. A venous Doppler study was performed in the setting of lower extremity edema revealing no evidence of DVT. She is euvolemic on exam. Oriented to person and place. Physical Exam Vital Signs (Past 24 Hours): Last Vital Signs Temp 36.6 C 10/13/18 15:14 Pulse 85 10/13/18 15:14 Resp 15 10/13/18 15:14 BP 150/70 H 10/13/18 15:14 Pulse Ox 93 10/13/18 15:14 CONSTITUTIONAL: elderly, frail, vitals as above, NAD EYES: normal conjuctivae, no scleral icterus ENT: MMM RESPIRATORY: clear to auscultation bilaterally, no crackles, rales or wheezes, normal respiratory effort CARDIOVASCULAR: regular rate and rhythm, S1 and 2 heard without murmurs, gallops or rubs, no JVD, trace peripheral edema GASTROINTESTINAL: normal bowel sounds, soft, nontender, nondistended MUSCULOSKELETAL: generalized weakness SKIN: warm and dry NEUROLOGIC: CN 2-12 grossly intact, no gross focal deficits. PSYCHIATRIC: alert cooperative and oriented to person and place. Doesn't know why she is here, however. Results & Data Laboratory Results Short CBC 10/13/18 Range/Units 00:42 WBC 8.94 (4.8-10.8) K/uL Hgb 10.4 L (12.0-16.0) g/dL Hct 31.2 L (37-47) % Plt Count 255 (130-400) K/uL BMP 10/13/18 00:42 Sodium 141 Potassium 3.5 Chloride 106 Carbon Dioxide 28 BUN 21 H Creatinine 1.04 Glucose 150 H Calcium 8.2 L Cardiac Enzymes 10/13/18 Range/Units 00:42 Troponin I 0.017 (0-0.045) ng/ml Liver Function 10/13/18 Range/Units 00:42 Albumin 3.1 L (3.4-5.0) gm/dl Medications Administered Current Inpatient Medications Acetaminophen (Tylenol) 650 mg PO Q4H PRN PRN Reason: Pain or Fever Stop: 11/11/18 22:46 Last Admin: 10/13/18 14:30 Dose: 650 mg Documented by: Aspirin (Ecotrin Ectab) 81 mg PO DAILY [facility] Stop: 11/12/18 08:59 Last Admin: 10/13/18 07:50 Dose: 81 mg Documented by: Carvedilol (Coreg) 25 mg PO BID [facility] Stop: 11/11/18 23:14 Last Admin: 10/13/18 07:50 Dose: 25 mg Documented by: Enoxaparin Sodium (Lovenox) 30 mg SQ QAM ANA Stop: 11/12/18 08:59 Last Admin: 10/13/18 07:49 Dose: 30 mg Documented by: Furosemide (Lasix) 20 mg PO DAILY [facility] Stop: 11/12/18 08:59 Last Admin: 10/13/18 07:49 Dose: 20 mg Documented by: Guaifenesin (Robitussin Sugar Free) 200 mg PO Q6H PRN PRN Reason: Cough Stop: 11/12/18 03:25 Last Admin: 10/13/18 03:54 Dose: 200 mg Documented by: Hydralazine HCl (Apresoline) 50 mg PO Q8H [facility] Stop: 11/12/18 05:59 Last Admin: 10/13/18 14:31 Dose: 50 mg Documented by: Ipratropium [place] (Atrovent 0.02% 0.5mg/2.5ml) 0.5 mg INH Q4H PRN PRN Reason: Shortness Of Breath Stop: 11/12/18 03:29 Levalbuterol HCl (Xopenex 1.25mg/0.5ml Neb) 1.25 mg INH Q4H PRN PRN Reason: Shortness Of Breath Stop: 11/12/18 03:29 Losartan Potassium (Cozaar) 100 mg PO DAILY [facility] Stop: 11/12/18 08:59 Last Admin: 10/13/18 07:50 Dose: 100 mg Documented by: Nitroglycerin (Nitrostat) 0.4 mg SL UD PRN PRN Reason: Chest Pain Stop: 11/11/18 22:46
[2018-10-13] MEDS ORDERED: ONDANSETRON INJ 2 MG/ML 2 ML VIAL IV STA (18:21)
[2018-10-13] MEDS ORDERED: PEPTAMEN 1.5 CAL 1,000 ML BAG NG SCH (18:45)
[2018-10-14 02:20] LABS: Appearance Urine Cloudy (Clear); Bacteria Urine Automated Negative (Negative); Bilirubin Urine Negative (Negative); Blood Urine 3+ (Negative); Color Urine Dark Yellow; Glucose Urine UA Negative (Negative); Ketones Urine Trace (Negative); Leukocyte Esterase Urine 2+ (Negative); Nitrite Urine Negative (Negative); Protein Urine 2+ (Negative); RBC Urine Automated >30 /hpf (0-4); Specific Gravity Urine 1.021 (1.000-1.030); Urobilinogen Urine Negative (Negative)
[2018-10-14] MEDS ORDERED: cefTRIAXone SODIUM 1,000 MG in DEXTROSE 5% 50 ML IV STA (03:15)
[2018-10-14] MEDS ORDERED: OLANZapine 10 MG/2.1 ML SDV IM PRN (03:15)
--- NOTE | 2018-10-14 03:17 | Hospitalist Progress Note ---
Date of Service October 14, 2018 Subjective Made aware by RN of restlessness overnight, patient crawling out of bed and pulling on Tovar as per RN. UA cloudy, WBC esterase Serum creatinine 1.29 from 1.06 (10/13) AP Delirium Multifactorial : Complicated UTI, no sepsis ARF Hospital environment Follow urine cultures, IV ceftriaxone Gentle IVF, hold home diuretic/ARB until creatinine at baseline Zyprexa as needed, frequent reorientation Will relay to AM provider. Physical Exam Vital Signs (Past 24 Hours): Last Vital Signs Temp 36.7 C 10/14/18 02:58 Pulse 87 10/14/18 02:58 Resp 18 10/14/18 02:58 BP 160/99 H 10/14/18 02:58 Pulse Ox 92 10/14/18 02:58
[2018-10-14 03:48] LABS: Basophils # (auto) 0.03 K/uL (0-0.2); Basophils % (auto) 0.3 %; Eosinophils # (auto) 0.05 K/uL (0-0.5); Eosinophils % (auto) 0.5 %; Hematocrit (blood only) 32.3 % (37-47); Hemoglobin 10.4 g/dL (12.0-16.0); Immature Granulocytes # (auto) 0.03 K/uL (0.00-0.02); Immature Granulocytes % (auto) 0.3 %; Lymphocytes # (auto) 1.05 K/uL (1.2-3.4); Lymphocytes % (auto) 9.9 %; Mean Corpuscular Hgb Conc 32.2 g/dL (32-36); Mean Corpuscular Volume 89.5 fL (80-100); Mean Platelet Volume 9.2 fL (7.4-10.4); Monocytes # (auto) 1.02 K/uL (0.11-0.59); Monocytes % (auto) 9.6 %; Neutrophils # (auto) 8.45 K/uL (1.4-6.5); Neutrophils % (auto) 79.4 %; Platelet Count 255 K/uL (130-400); RDW Coefficient of Variation 15.8 % (11.5-14.5); RDW Standard Deviation 52.2 fL (36.4-46.3); Red Blood Count 3.61 M/uL (4.2-5.4); White Blood Count 10.63 K/uL (4.8-10.8)
[2018-10-14] MEDS: cefTRIAXone SODIUM 1,000 MG in DEXTROSE 5% 50 ML IV SCH (03:59)
[2018-10-14 04:08] LABS: BUN Creatinine Ratio 20.2 (10-20); Calcium 8.3 mg/dl (8.5-10.1); Creatinine Clr Calc Pharmacy 25.8 ml/min; Est GFR (African American) 42.8; Est GFR (Non-African American) 36.9; Magnesium 2.1 mg/dl (1.8-2.4); Potassium 3.4 mmol/L (3.5-5.1)
[2018-10-14] MEDS ORDERED: LACTATED RINGER'S 1,000 ML IV ONE (05:30)
[2018-10-14] MEDS ORDERED: POTASSIUM CHLORIDE 20 MEQ TABCR PO ONE (05:30)
[2018-10-14] MEDS: HEPARIN SOD 5,000 UNIT/0.5 ML VIAL SQ SCH ×3 (06:40→22:30)
[2018-10-14] MEDS: HydrALAZINE TAB 50 MG TAB PO SCH ×3 (06:40→21:30)
[2018-10-14] MEDS: CARVEDILOL 25 MG TAB PO SCH ×2 (06:50→21:30)
[2018-10-14] MEDS: ASPIRIN 81 MG ECTAB PO SCH (08:48)
[2018-10-14] MEDS ORDERED: POTASSIUM CHLORIDE 10 MEQ TABCR PO STA (12:26)
--- NOTE | 2018-10-14 13:58 | Hospitalist Progress Note ---
Date of Service October 14, 2018 Assessment & Plan (1) [place] (acute kidney injury): She just received Lasix 40mg IV at the transferring ER, which is likely contributing to this. She is euvolemic on exam. Stop IVF. (2) UTI (urinary tract infection): Ceftriaxone pending urine cultures. Clinically improved today. Keep cunningham another day. (3) Dyspnea: She may have had some mild CHF as there was minimal interstitial edema seen on the chest x-ray at outside ER. However, she continues to remain euvolemic today and is doing well on her home dose of Lasix 20 mg p.o. daily, held this am 2/2 [place] seen on labwork. She appears compensated at this time. I see no reason for repeat echocardiogram. She does have a cough present that is nonproductive and a clinical picture consistent with some upper respiratory illness possibly secondary to a virus. Continue supportive care. (4) HTN (hypertension): Controlled, continue home regimen of hydralazine and carvedilol. Losartan held in setting of [place]. (5) Acute urinary retention: There is a Cunningham in place for reported acute urinary retention reported from outside ER. UTI present. Will continue another day of antibiotics prior to trial of void. (6) Dementia: Likely at baseline mental status. Will discuss with family tomorrow. Continue with good day night cycles and efforts to prevent delirium as she is higher risk for this in the hospital. She is at high risk for delirium 2/2 infection. (7) DVT prophylaxis: Lovenox Full code Dispo-likely to home in 1-2 days pending PT/OT recommendations. Rosa Isela Yusuf DO [facility] Hospitalist Subjective Feels well today, some cough present. Denies any SOB or swelling. Family at bedside and reports swelling is improved. Physical Exam Vital Signs (Past 24 Hours): Last Vital Signs Temp 37.1 C 10/14/18 10:37 Pulse 76 10/14/18 10:37 Resp 16 10/14/18 10:37 BP 152/71 H 10/14/18 10:37 Pulse Ox 92 10/14/18 10:37 CONSTITUTIONAL: elderly, frail, vitals as above, NAD EYES: normal conjuctivae, no scleral icterus ENT: MMM RESPIRATORY: clear to auscultation bilaterally, no crackles, rales or wheezes, normal respiratory effort CARDIOVASCULAR: regular rate and rhythm, S1 and 2 heard without murmurs, gallops or rubs, no JVD, trace peripheral edema GASTROINTESTINAL: normal bowel sounds, soft, nontender, nondistended MUSCULOSKELETAL: generalized weakness SKIN: warm and dry NEUROLOGIC: CN 2-12 grossly intact, no gross focal deficits. Results & Data Laboratory Results Short CBC 10/14/18 Range/Units 03:39 WBC 10.63 (4.8-10.8) K/uL Hgb 10.4 L (12.0-16.0) g/dL Hct 32.3 L (37-47) % Plt Count 255 (130-400) K/uL BMP 10/14/18 03:39 Sodium 140 Potassium 3.4 L Chloride 106 Carbon Dioxide 29 BUN 26 H Creatinine 1.29 H Glucose 108 H Calcium 8.3 L Urine 10/14/18 Range/Units 01:19 Urine Color Dark Yellow Urine Appearance Cloudy H (Clear) Urine pH 5.0 (4.5-7.5) Ur Specific [place] 1.021 (1.000-1.030) Urine Protein 2+ H (Negative) Urine Glucose (UA) Negative (Negative) Medications Administered Current Inpatient Medications Acetaminophen (Tylenol) 650 mg PO Q4H PRN PRN Reason: Pain or Fever Stop: 11/11/18 22:46 Last Admin: 10/13/18 14:30 Dose: 650 mg Documented by: Aspirin (Ecotrin Ectab) 81 mg PO DAILY [facility] Stop: 11/12/18 08:59 Last Admin: 10/14/18 08:48 Dose: 81 mg Documented by: Carvedilol (Coreg) 25 mg PO BID ANA Stop: 11/13/18 05:29 Last Admin: 10/14/18 06:50 Dose: 25 mg Documented by: Furosemide (Lasix) 20 mg PO DAILY ANA Stop: 11/12/18 08:59 Last Admin: 10/13/18 07:49 Dose: 20 mg Documented by: Guaifenesin (Robitussin Sugar Free) 200 mg PO Q6H PRN PRN Reason: Cough Stop: 11/12/18 03:25 Last Admin: 10/13/18 03:54 Dose: 200 mg Documented by: Heparin Sodium (Porcine) (Heparin Sodium (Porcine)) 5,000 units SQ Q8 ANA Stop: 11/13/18 05:59 Last Admin: 03/17/19 13:17 Dose: 5,000 units Documented by: Hydralazine HCl (Apresoline) 50 mg PO Q8H [facility] Stop: 11/12/18 05:59 Last Admin: 10/14/18 13:17 Dose: 50 mg Documented by: Ceftriaxone Sodium 1,000 mg/ (Dextrose) 50 mls @ 100 mls/hr IV Q24H [facility]; Protocol Stop: 10/24/18 03:59 Last Infusion: 10/14/18 05:02 Dose: Infused Documented by: Ipratropium [place] (Atrovent 0.02% 0.5mg/2.5ml) 0.5 mg INH Q4H PRN PRN Reason: Shortness Of Breath Stop: 11/12/18 03:29 Levalbuterol HCl (Xopenex 1.25mg/0.5ml Neb) 1.25 mg INH Q4H PRN PRN Reason: Shortness Of Breath Stop: 11/12/18 03:29 Losartan Potassium (Cozaar) 100 mg PO DAILY [facility] Stop: 11/12/18 08:59 Last Admin: 10/13/18 07:50 Dose: 100 mg Documented by: Nitroglycerin (Nitrostat) 0.4 mg SL UD PRN PRN Reason: Chest Pain Stop: 11/11/18 22:46 Olanzapine (Zyprexa) 2.5 mg IM Q4H PRN PRN Reason: Anxiety/Agitation Stop: 11/13/18 03:14
[2018-10-14] MEDS: LEVALBUTEROL 1.25MG/0.5ML NEB INH PRN ×2 (14:50→19:47)
[2018-10-14] MEDS: IPRATROPIUM BROMIDE NEB SOLN 0.02% 2.5 ML VIAL INH PRN ×2 (14:50→19:47)
[2018-10-14] MEDS ORDERED: SODIUM CHLORIDE 0.65% NA SOLN 45 ML (OCEAN) ONE (15:31)
[2018-10-14] MEDS ORDERED: COUGH DROP (SUGAR FREE) LOZ 24 LOZ/1 BOX BUCCAL ONE (16:40)
[2018-10-15] MEDS: cefTRIAXone SODIUM 1,000 MG in DEXTROSE 5% 50 ML IV SCH (04:41)
[2018-10-15] MEDS: HydrALAZINE TAB 50 MG TAB PO SCH ×3 (06:03→21:23)
[2018-10-15] MEDS: HEPARIN SOD 5,000 UNIT/0.5 ML VIAL SQ SCH ×3 (06:03→21:23)
[2018-10-15 07:25] LABS: Hematocrit (blood only) 34.4 % (37-47); Hemoglobin 11.2 g/dL (12.0-16.0); Mean Corpuscular Hgb Conc 32.6 g/dL (32-36); Mean Corpuscular Volume 88.9 fL (80-100); Mean Platelet Volume 9.8 fL (7.4-10.4); Platelet Count 303 K/uL (130-400); RDW Standard Deviation 51.4 fL (36.4-46.3); Red Blood Count 3.87 M/uL (4.2-5.4); White Blood Count 9.83 K/uL (4.8-10.8)
[2018-10-15 08:03] LABS: BUN Creatinine Ratio 17.3 (10-20); Creatinine Clr Calc Pharmacy 26.9 ml/min; Est GFR (African American) 44.9; Est GFR (Non-African American) 38.8; Magnesium 2.3 mg/dl (1.8-2.4)
[2018-10-15] MEDS: CARVEDILOL 25 MG TAB PO SCH ×2 (08:58→21:22)
[2018-10-15] MEDS: ASPIRIN 81 MG ECTAB PO SCH (08:58)
--- NOTE | 2018-10-15 12:16 | Hospitalist Progress Note ---
Date of Service October 15, 2018 Assessment & Plan (1) [place] (acute kidney injury): She just received Lasix 40mg IV at the transferring ER, which is likely contributing to this. She is euvolemic on exam. Stop IVF. Cont to monitor BMP (2) UTI (urinary tract infection): Ceftriaxone pendingn urine culture (3) Dyspnea: She may have had some mild CHF as there was minimal interstitial edema seen on the chest x-ray at outside ER. However, she continues to remain euvolemic today and is doing well on her home dose of Lasix 20 mg p.o. daily, held this am 2/2 [place] seen on labwork. She appears compensated at this time. I see no reason for repeat echocardiogram. She does have a cough present that is nonproductive and a clinical picture consistent with some upper respiratory illness possibly secondary to a virus. This is improved. Continue supportive care. (4) HTN (hypertension): Controlled, continue home regimen of hydralazine and carvedilol. Losartan held in setting of [place]. (5) Acute urinary retention: resolved. (6) Dementia: Likely at baseline mental status. Continue with good day night cycles and efforts to prevent delirium as she is higher risk for this in the hospital. She is at high risk for delirium (7) DVT prophylaxis: Lovenox Full code Dispo-likely to home in 1-2 days pending PT/OT recommendations. Rosa Isela Yusuf DO [facility] Hospitalist Subjective doing well, no complaints. Tovar removed and passed TOV. Physical Exam Vital Signs (Past 24 Hours): Last Vital Signs Temp 37.1 C 10/15/18 11:32 Pulse 74 10/15/18 11:32 Resp 18 10/15/18 11:32 BP 126/62 10/15/18 11:32 Pulse Ox 95 10/15/18 11:32 GEN: frail, elderly, NAD HEENT: MMM CV: S1/2 heard, reg rate and rhythm, no peripheral edema. LUNGS: CTAB ABD: soft, nontender, nondistended EXT: warm and well perfused Neuro: baseline dementia, no gross focal deficits. Results & Data Laboratory Results Short CBC 10/15/18 Range/Units 06:58 WBC 9.83 (4.8-10.8) K/uL Hgb 11.2 L (12.0-16.0) g/dL Hct 34.4 L (37-47) % Plt Count 303 (130-400) K/uL BMP 10/15/18 06:58 Sodium 142 Potassium 4.0 D Chloride 109 H Carbon Dioxide 28 BUN 21 H Creatinine 1.24 H Glucose 94 Calcium 9.0 Medications Administered Current Inpatient Medications Acetaminophen (Tylenol) 650 mg PO Q4H PRN PRN Reason: Pain or Fever Stop: 11/11/18 22:46 Last Admin: 10/13/18 14:30 Dose: 650 mg Documented by: Aspirin (Ecotrin Ectab) 81 mg PO DAILY [facility] Stop: 11/12/18 08:59 Last Admin: 10/15/18 08:58 Dose: 81 mg Documented by: Carvedilol (Coreg) 25 mg PO BID [facility] Stop: 11/13/18 05:29 Last Admin: 10/15/18 08:58 Dose: 25 mg Documented by: Furosemide (Lasix) 20 mg PO DAILY [facility] Stop: 11/12/18 08:59 Last Admin: 10/13/18 07:49 Dose: 20 mg Documented by: Guaifenesin (Robitussin Sugar Free) 200 mg PO Q6H PRN PRN Reason: Cough Stop: 11/12/18 03:25 Last Admin: 10/13/18 03:54 Dose: 200 mg Documented by: Heparin Sodium (Porcine) (Heparin Sodium (Porcine)) 5,000 units SQ Q8 ANA Stop: 11/13/18 05:59 Last Admin: 10/15/18 06:03 Dose: 5,000 units Documented by: Hydralazine HCl (Apresoline) 50 mg PO Q8H [facility] Stop: 11/12/18 05:59 Last Admin: 10/15/18 06:03 Dose: 50 mg Documented by: Ceftriaxone Sodium 1,000 mg/ (Dextrose) 50 mls @ 100 mls/hr IV Q24H [facility]; Protocol Stop: 10/24/18 03:59 Last Infusion: 10/15/18 05:15 Dose: Infused Documented by: Ipratropium [place] (Atrovent 0.02% 0.5mg/2.5ml) 0.5 mg INH Q4H PRN PRN Reason: Shortness Of Breath Stop: 11/12/18 03:29 Last Admin: 10/14/18 19:47 Dose: 0.5 mg Documented by: Levalbuterol HCl (Xopenex 1.25mg/0.5ml Neb) 1.25 mg INH Q4H PRN PRN Reason: Shortness Of Breath Stop: 11/12/18 03:29 Last Admin: 10/14/18 19:47 Dose: 1.25 mg Documented by: Losartan Potassium (Cozaar) 100 mg PO DAILY ANA Stop: 11/12/18 08:59 Last Admin: 10/13/18 07:50 Dose: 100 mg Documented by: Nitroglycerin (Nitrostat) 0.4 mg SL UD PRN PRN Reason: Chest Pain Stop: 11/11/18 22:46 Olanzapine (Zyprexa) 2.5 mg IM Q4H PRN PRN Reason: Anxiety/Agitation Stop: 11/13/18 03:14 Last Admin: 10/14/18 21:24 Dose: 2.5 mg Documented by:
[2018-10-16] MEDS ORDERED: ONDANSETRON INJ 2 MG/ML 2 ML VIAL IV PRN (01:13)
[2018-10-16] MEDS: cefTRIAXone SODIUM 1,000 MG in DEXTROSE 5% 50 ML IV SCH (03:10)
[2018-10-16] MEDS: HydrALAZINE TAB 50 MG TAB PO SCH ×2 (05:31→13:09)
[2018-10-16] MEDS: HEPARIN SOD 5,000 UNIT/0.5 ML VIAL SQ SCH ×2 (05:31→13:10)
[2018-10-16] MEDS: ASPIRIN 81 MG ECTAB PO SCH (09:01)
[2018-10-16] MEDS: CARVEDILOL 25 MG TAB PO SCH (09:01)
[2018-10-16 09:44] LABS: BUN Creatinine Ratio 14.5 (10-20); Calcium 8.8 mg/dl (8.5-10.1); Creatinine Clr Calc Pharmacy 23.8 ml/min; Est GFR (African American) 38.8; Est GFR (Non-African American) 33.5; Potassium 3.6 mmol/L (3.5-5.1)
[2018-10-16] MEDS: ACETAMINOPHEN 325 MG TAB PO PRN (12:23)
--- NOTE | 2018-10-16 16:59 | Discharge Summary ---
Date of Service October 16, 2018 Admission HPI Per Admitting Provider History obtained from patient, family, and records. Limited history from patient secondary to dementia. Medical history significant for chronic diastolic heart failure EF 65 to 70% TTE July 2018, hypertension, A. fib not on anti-coagulation, dementia, chronic anemia baseline hemoglobin 10-11 Recent confinement July 2018 for hypertensive urgency, new onset A. fib. Oral anti-coagulation for new onset A. fib felt to be risky given patient/family decision to go home despite questionable 20/02 care as per documentation. As per patient daughter, patient seen at [place] ER 5 days ago for cough symptoms. Symptoms attributed to bronchitis, patient discharged home. Patient [id number] later messaged [facility] at home nurse that patient was not feeling well, need for anxiety medication to calm patient. Patient brought to the [facility] ER today due to productive cough increased shortness of breath, increased leg swelling. Patient received IV Lasix, Nitropaste, Solu-Medrol, and DuoNeb treatment at the ER. Patient transferred to [facility] as per patient's family's request. Patient has no recollection of events of the week. 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, lives with [id number] Admission Exam Per Admitting Provider Temp 36.8 C 10/12/18 22:36 Pulse 84 10/12/18 22:36 Resp 20 10/12/18 22:36 BP 181/93 H 10/12/18 22:36 Pulse Ox 96 10/12/18 22:36 Physical Exam: GENERAL: Comfortable, demented, slightly anxious, no respiratory distress SKIN: Pallor, warm HEENT: Pale palpebral conjunctivae, no ptosis, dry buccal mucosa NECK : Supple, no tenderness CHEST : Decreased breath sounds, no tenderness HEART : Irregular, systolic murmur ABDOMEN: Some distention, nontender EXTREMITIES : Minimal LE swelling, no tenderness, no other conspicuous deformities noted NEUROLOGIC : Demented, no facial asymmetry, gait and stance not assessed Principal Diagnosis Acute diastolic heart failure Hypertensive kidney disease, CKD stage III Dementia Hypertension Acute urinary retention Discharge Data Allergies Allergy/AdvReac Type Severity Reaction Status Date / Time No Known Allergies Allergy Unverified 10/13/18 00:48 Ordered Studies 10/13/18 03:56 US venous doppler [facility] Urgent Hospital Course (1) UTI (urinary tract infection): . (2) Dyspnea: (3) HTN (hypertension): (4) Acute urinary retention: (5) Dementia: (6) Hypertensive kidney disease with CKD stage III: 87-year-old female arrived to [facility] on 09/28 with a history of shortness of breath for several days. She has a history of dementia and is a poor historian. At the [place] ER, an x-ray was performed revealing minimal interstitial edema. An arterial blood gas was performed and the pH is 7.47 and a CO2 of 30. Diminished breath sounds were heard on exam in addition to expiratory wheezing and fine crackles. A Tovar catheter was placed for reported acute urinary retention. Per [facility] records it is not clear how much volume was present on bladder scan or what her post catheter void amount was. She was administered nebulizer treatment and Solu-Medrol and did not require supplemental oxygen saturating well on room air. Lasix 40 mg IV x1 dose was administered. Nitro paste was also applied to her chest. An EKG revealed atrial fibrillation with rate controlled. She arrived to [facility] overnight with a blood pressure elevated in the 170-180 range systolic. This improved into the 130s the following morning. She continue to oxygen it well on room air despite reporting some shortness of breath subjectively. She does have a cough that is present and was thought to have some bronchitis prior to arrival. Flu was checked and was negative. No leukocytosis was present, troponin was negative on arrival. A chest x-ray was performed revealing no acute cardiopulmonary abnormality. A venous Doppler study was performed in setting of lower extremity edema revealing no evidence of DVT. Notably edema was very trace on exam. She was euvolemic on exam on hospital day 2. She was oriented to person and place and this appeared to be her baseline. Her urine was noted to be cloudy and was sent for culture. This was negative for infection but she was empirically placed on Rocephin. Blood cultures were drawn and were negative. Daily blood work revealed a mild bump in her creatinine possibly secondary to the IV Lasix received at the transferring ER. Her Lasix was held as a result of this rise in creatinine, however, per outpatient records her base creatinine is 1.2-1.6. PT and OT evaluated the patient and recommended return home with 24/7 supervision which is already provided by the family. Lasix will continue to be held with a BMP ordered for one week and close follow-up by her primary care physician. At time of discharge she was mentating and ambulating at baseline and was tolerating p.o. She was hemodynamically stable and afebrile and physical exam was unchanged. She was compensated and euvolemic on exam her entire admission. Overall her dyspnea was likely related to diastolic dysfunction and she could be classified as acute diastolic heart failure compensated after Lasix 40 mg IV given at the [place] ER. Total Time Total Time Spent Total Time Spent (In Minutes): 60 Total Time Includes: Examination of the Patient, Discharge Planning, Medication Reconciliation, Communication With Other Providers and Other (scheduled fol lowup) Discharge Plan Discharge Items Patient Disposition: Home - Home Health Services Reason For Visit: CHF Discharge Diagnosis: Acute diastolic heart failure Hypertensive kidney disease, CKD stage III Dementia Hypertension Acute urinary retention Condition: Good Discharge Goals: Improve disease control Activity: Resume your previous activity Non-emergency contact: Primary Care Provider Call non-emergency contact if: you have any medication questions, your symptoms worsen, your pain is not controlled and you have a fever Follow-up/Referrals: Cheryl Grider MD [Primary Care Provider] - Diet: Heart Healthy Diet Texture: Dental soft (bite-sized) Other Ambulatory Orders: Basic Metabolic Panel (Routine) Timeframe: 3 Days Location: Determined by Patient Ordered By: Rosa Isela Yusuf [facility] Provider Instructions: Please take all medications as instructed below on discharge list. It is recommended that he stop taking Lasix until you see your primary care doctor within follow-up. You have received a lab prescription for blood work that is nonfasting. Please get this blood work done in the lab prior to seeing your physician in follow-up. Monday (10/19) or Monday (10/22, before your appointment) are good days to do this. It is recommended that you follow-up with your primary care provider within 1 week. The following appointment has been made for you: Date & Time 10/22/2018 3:00 PM Provider Cheryl Grider MD Department Internal Medicine [facility] Please continue to weigh yourself daily and notify your medical provider if you gain more than 5 pounds in 2 days. Please continue to stick to a low sodium diet. It was a pleasure taking care of you! Please call if you have any questions or problems. You can reach a [facility] hospitalist on duty at [facility] 24 hours a day by calling [phone]. Take care of yourself. Rosa Isela Yusuf, DO [facility] Hospitalist Prescriptions: Continued losartan 100 mg Tablet 100 mg PO DAILY RF: 0 carvedilol 25 mg Tablet 25 mg PO BID RF: 0 dextromethorphan-guaifenesin 10-200 mg Capsule 2 tab-cap PO Q12H PRN (Reason: Cough) RF: 0 Triple Antibiotic 3.5mg-400 unit- 5,000 unit/gram Ointment 1 applic TOPICAL BID RF: 0 cholecalciferol (vitamin D3) [Vitamin D3] 1,000 unit Tablet 1,000 unit PO DAILY RF: 0 hydralazine 50 mg Tablet 50 mg PO Q8H RF: 0 lisinopril 40 mg Tablet 40 mg PO DAILY RF: 0 aspirin 81 mg Tablet,Delayed Release (Dr/Ec) 81 mg PO DAILY RF: 0 acetaminophen [Tylenol] 325 mg Tablet 650 mg PO Q6H PRN (Reason: Pain) RF: 0 Discontinued furosemide [Lasix] 20 mg Tablet 20 mg PO DAILY RF: 0 Stand-Alone Forms: [facility] Admission Data Admit Date/Time: 10/12/18 21:54 Attending Provider: Rosa Isela Yusuf Admit Provider: Alonso Astudillo Primary Care Provider: Cheryl Grider Service: Medical
== END 2018-10-16 18:30 | disposition home health service (06) | DRG 291 ==
LOC: 2S 21:54 → 4W 10-15 14:00